=== PATIENT | male | born 1955 | race Two or more races ===

== ENCOUNTER → 2020-11-01 13:43 | Outpatient (BNVA) | payer OTHER, SELFPAY | PROVIDERS: PCP Internal Medicine; Visit Provider Nurse Practitioner Family | DX: M96.1 Postlaminectomy syndrome, not elsewhere classified (principal); M54.16 Radiculopathy, lumbar region | CPT/HCPCS: 99202 ==

== ENCOUNTER 2021-04-03 12:00 | Day surgery (SDC) | payer OTHER, SELFPAY ==
[2021-03-25 14:36] VITALS: BMI 30.1
--- NOTE | 2021-04-02 10:34 | HO.ANESPROP2 ---
Documented by User: Radha Leo NP 04/02/21 10:36 HPI - Anesthesia Eval Consult details Narrative: 65yo M for Lumbar Spinal Cord Stimulation Trial PMFSH Active Problems Active Problems: All Active Problems (Updated 03/25/21 @ 14:39 by Shayy Smalls RN) Post-laminectomy syndrome (Acute) Bilateral lumbar radiculopathy (Acute) Past Medical History Medical History Arthritis Benign prostate hyperplasia Decreased hearing Diabetes Elevated cholesterol Genital warts GERD (gastroesophageal reflux disease) History of pilonidal cyst Hyperlipidemia Lumbar back pain Surgical History Surgical History History of back surgery Hx laparoscopic cholecystectomy Social History Social History Patient Tobacco Use Status: Current everyday Tobacco user Tobacco use type: Cigarette Cigarettes Per Day: 15 Years Smoked: 30+ Smoked in Last 30 Days: Yes Use of substances other than those prescribed or required for medical reasons: Yes Substance Use Type Other:: advised to hold 3-5 days pre-op Substance Use Frequency: Occasionally Are you DNR?: No Advance Directives: No Advance Directives Information Provided: Yes (brochure mailed) Advance Directives on File: No Recently lost weight without trying: No Eating poorly because of decreased appetite: No Nutrition Risks: No Nutritional Risk Meds Allergies Allergy/AdvReac Type Severity Reaction Status Date / Time simvastatin [From Zocor] Allergy Intermediate itching/mouth Verified 03/25/21 14:44 swelling ondansetron [From Zofran] AdvReac Intermediate extreme Verified 03/25/21 14:44 redness at injection site Home Medications Medication Instructions Recorded Confirmed Last Taken Type glipizide 5 mg tablet 5 mg PO DAILY 11/01/20 03/25/21 Unknown History metformin 500 mg tablet 500 mg PO BID 11/01/20 03/25/21 Unknown History omeprazole 20 mg capsule,delayed 20 mg PO DAILY 11/01/20 03/25/21 Unknown History release Exam Exam Date and Time: April 02, 2021 1034 Height,Weight and Vital Signs: Height 5 ft 11 in Weight 97.976 kg Assessment and Plan Assessment Anesthesia Assessment: Chart Reviewed Documented by User: Ann Mcmillan MD 04/03/21 13:05 PMF Past Medical History Medical History Arthritis Benign prostate hyperplasia Decreased hearing Diabetes Elevated cholesterol Genital warts GERD (gastroesophageal reflux disease) History of pilonidal cyst Hyperlipidemia Lumbar back pain Surgical History Surgical History History of back surgery Hx laparoscopic cholecystectomy History of Problems with Anesthesia: No Social History Social History Patient Tobacco Use Status: Current everyday Tobacco user Tobacco use type: Cigarette Cigarettes Per Day: 15 Years Smoked: 30+ Smoked in Last 30 Days: Yes Use of substances other than those prescribed or required for medical reasons: Yes Substance Use Type Other:: advised to hold 3-5 days pre-op Substance Use Frequency: Occasionally Are you DNR?: No Advance Directives: No Advance Directives Information Provided: Yes (brochure mailed) Advance Directives on File: No Recently lost weight without trying: No Eating poorly because of decreased appetite: No Nutrition Risks: No Nutritional Risk Meds Allergies Allergy/AdvReac Type Severity Reaction Status Date / Time simvastatin [From Zocor] Allergy Intermediate itching/mouth Verified 03/25/21 14:44 swelling ondansetron [From Zofran] AdvReac Intermediate extreme Verified 03/25/21 14:44 redness at injection site Home Medications Medication Instructions Recorded Confirmed Last Taken Type glipizide 5 mg tablet 5 mg PO DAILY 11/01/20 03/25/21 Unknown History metformin 500 mg tablet 500 mg PO BID 11/01/20 03/25/21 Unknown History omeprazole 20 mg capsule,delayed 20 mg PO DAILY 11/01/20 03/25/21 Unknown History release Exam Airway Mallampati Class: II TM Dist: >3cm Neck ROM: Full Loose/Missing/Broken Teeth: No Heart: RRR Lungs: CTA BUT DISTANT Assessment and Plan Assessment Anesthesia Assessment: Anesthesia Plan Discussed Final Anesthetic Review History of Problems with Anesthesia: No NPO: Yes ASA Class: II Final Preanesthetic Review: Meds/Allgs Chart Reviewed, Consent Obtained/Reviewed and Anes Risks/Benef Reviewed Patient Risk: Low Procedure Risk: Intermediate Anesthetic Plan Anesthetic Plan: MAC: Disposition: Standard PACU
[2021-04-03] VITALS (8 sets, daily range): BP systolic 128–157; BP diastolic 84–91; PULSE 58–85; RESP 16–18; TEMP 36.4–36.7; O2SAT 97–99
--- NOTE | ~2021-04-03 | FL_ITS ---
EXAMINATION: XR FLUOROSCOPY WITH IMAGES CLINICAL INFORMATION: Neural stimulator implants. COMPARISON: None. TECHNIQUE: Fluoroscopy performed by Dr. Juan Salamanca. Fluoroscopy time: 9.2 minutes DAP: 59.4 Gy-cm2 Images: 3 FINDINGS: There are 3 digital images obtained of the dorsal lower and mid dorsal spine with 2 posterior neural stimulators in posterior epidural space from the T7 through T9 vertebrae. The visualized vertebral heights and alignment are normal. There is loss of T11-T12 disc height with moderate ventral spondylosis. FL/FL guidance in OR IMPRESSION: Fluoroscopy was provided to Dr. Juan Salamanca for pain management.
[2021-04-03 12:32] LABS: Glucose, Whole Blood 131 mg/dL (60-115)
[2021-04-03] MEDS: Lactated Ringers 1,000 ML 100 ML IVCONT (12:42)
--- NOTE | 2021-04-03 12:47 | MHC.SHP ---
Pre-Procedural Eval Section A Date of Service: 04/03/21 The patient is an INPATIENT: No Changes since office visit: Yes Patient answered all questions The History & Physical has been completed within 30 days and I have reviewed it.: No Section B Chief Complaint: postlaminectomy syndrome Details of Present Illness: as above Relevant Family History (Specify if Yes): No Relevant Social History: None Present Medications: see Short Stay Collaborative assessment Medical History: No relevant PMH History of Previous Operations: Relevant previous surgery/procedure and date(s) Allergies: Allergies Allergy/AdvReac Type Severity Reaction Status Date / Time simvastatin [From Zocor] Allergy Intermediate itching/mouth Verified 03/25/21 14:44 swelling ondansetron [From Zofran] AdvReac Intermediate extreme Verified 03/25/21 14:44 redness at injection site Review of Systems Sugical H&P ROS: Negative: Constitution, Cardiovascular, Respiratory, Neurological, Psychiatric, Hem-Onc, Allergic/Immunologic, Gastrointestinal, Genitourinary, Musculoskeletal, Integumentary, Endocrine and Eyes/Ears/Nose/Throat Exam Surgical H&P Exam: Normal: HEENT, Normal: Heart, Normal: Lungs, Normal: Extremities, Normal: Abdomen, Normal: Skin and Normal: Neurological Plan Diagnosis/Plan: Unchanged I have reviewed the history and physical and performed a pertinent physical examination on my patient. No changes have occurred unless specified.
--- NOTE | 2021-04-03 14:49 | P.BOP_ITS ---
Brief Operative Note Date of Service: 04/03/21 Pre-op diagnosis: postlaminectomy syndrome Post-op diagnosis: same Procedure: trial of [employer] spinal cord stimulator Implants: none permanent Surgeon: Juan Salamanca MD Anesthesia: GETA Was an Nursing Home Physician used for this Procedure?: No Estimated blood loss (mL): 0 Pathology: none sent Condition: stable Disposition: PACU
--- NOTE | 2021-04-03 14:59 | P.OP_ITS ---
Operative Note Operative Note Date of Service: 04/03/21 Narrative: Luis Enrique is 65 years old gentleman who came today into the operating room for trial of spinal cord stimulator for the treatment of post laminectomy syndrome. Preoperatively patient received cefazolin 2 g approximately 10 minutes before the procedure. After obtaining informed consent the patient was brought to the operating room, HE was positioned prone on operating table, [employer] monitors were applied and the patient was deeply sedated.? ?Time-out was performed delineating correct site, side, the nature of the procedure, patient's allergy, preoperative antibiotic if needed.? All operating room staff was participating in OR time-out procedure. Patient's entire back was prepped with DuraPrep twice and draped with full body fenestrated laparoscopy drape.? Sterilely draped C-arm was brought over operating field and square picture of the ? T12-L1 L2 and L3 vertebrae as were demonstrated on the screen.? ?Attention FIRST? was concentrated on the L1-L2 epidural interspace.? The locat ion of the projection of the right pedicle center of the L3 vertebra was found on the skin using C-arm.? This location was injected with mixture of lidocaine 2% and Marcaine 0.5% 5 cc.? After that 11 blade was used to make a tanner on the skin.? 10 cm 14 gauge? introducer epidural needle was inserted through the tanner and advanced to? ? L1-L2 epidural interspace.? The advancement of the needle was performed on anterior posterior and lateral views.?Loss of resistance technique were used to locate epidural space., epidural lead was inserted through the needle and it was advanced to? T8 level slightly right to the midline.? ? .? After that? the location of the projection of the LEFT pedicle center of the L3 vertebra was found on the skin using C-arm.? This location was injected with mixture of lidocaine 2% and Marcaine 0.5% 5 cc.? After that 11 blade was used to make a tanner on the skin.? 10 cm 14 gauge introducer epidural needle was inserted through the tanner and advanced to T8-T9 epidural interspace.? The advancement of the needle was performed on anterior posterior and lateral views.? Guitar wire and loss of resistance technique were used to locate epidural space.? When guitar wire was spread in the epidural fashion, epidural lead was inserted through the needle and advanced to the middle of T8 epidural interspace slightly? left to the existing electrode. Impedance was checked and was satisfactory . at this moment patient was awaken of the epidural leads were connected to the testing wires and trial stimulation was performed. Patient was reporting stimulation corresponding to his pain. The needles were withdrawn, the stylette wires were removed from the epidural leads.? The anchoring devices were dislodged on the leads and advanced to the level of the skin.? The anchoring devices were sutured with two 0-0 Tycron sutures per each anchor to the skin of the patient. The central fixation screw of each anchor was rotated until three clicks were heard. The leads were connected to testing device.? Bacitracin ointment was applied to the entrance point of bilateral needles.? Sterile dressing was applied to the patient's back.? The testing device was also glued to the patient's back.? the patient tolerated procedure well he was awaken and taken outside of the operating room to recovery room. he recovered uneventfully.
== END 2021-04-03 16:19 | disposition home or self-care (01) ==
PROVIDERS: PCP Internal Medicine; Visit Provider Anesthesiology
PROC: (CPT 63650; principal; 2021-04-03 13:50)
DX: M96.1 Postlaminectomy syndrome, not elsewhere classified (principal); M54.16 Radiculopathy, lumbar region; M54.50 Low back pain, unspecified; M53.80 Other specified dorsopathies, site unspecified; R20.0 Anesthesia of skin; R26.2 Difficulty in walking, not elsewhere classified; Z98.890 Other specified postprocedural states; M16.0 Bilateral primary osteoarthritis of hip; N40.0 Benign prostatic hyperplasia without lower urinary tract symptoms; E78.5 Hyperlipidemia, unspecified; E11.9 Type 2 diabetes mellitus without complications; Z79.84 Long term (current) use of oral hypoglycemic drugs; Z79.899 Other long term (current) drug therapy; Z88.8 Allergy status to other drugs, medicaments and biological substances; F17.210 Nicotine dependence, cigarettes, uncomplicated
CPT/HCPCS: 63650 ×2; 82947; C1713; C1778; J0690; J1100; J2250; J2405; J3010

== ENCOUNTER → 2021-04-09 13:04 | Outpatient (BNVA) | payer OTHER, SELFPAY | PROVIDERS: PCP Internal Medicine; Visit Provider Anesthesiology | DX: M96.1 Postlaminectomy syndrome, not elsewhere classified (principal); M54.16 Radiculopathy, lumbar region | CPT/HCPCS: 99212 ==

== ENCOUNTER 2021-08-01 06:04 | Day surgery (SDC) | payer OTHER, SELFPAY ==
--- NOTE | 2021-07-31 10:29 | HO.ANESPROP2 ---
Documented by User: Radha Leo NP 07/31/21 10:30 HPI - Anesthesia Eval Consult details Narrative: 66yo M for Lumbar Spinal Stimulation Implant s/p trial 03/2021 with [employer] PMFSH Active Problems Active Problems: All Active Problems (Updated 03/25/21 @ 14:39 by Shayy Smalls RN) Post-laminectomy syndrome (Acute) Bilateral lumbar radiculopathy (Acute) Past Medical History Medical History Arthritis Benign prostate hyperplasia Decreased hearing Diabetes Elevated cholesterol Genital warts GERD (gastroesophageal reflux disease) History of pilonidal cyst Hyperlipidemia Lumbar back pain Surgical History Surgical History History of back surgery Hx laparoscopic cholecystectomy History of Problems with Anesthesia: No Social History Social History Patient Tobacco Use Status: Current everyday Tobacco user Tobacco use type: Cigarette Cigarettes Per Day: 15 Years Smoked: 30+ Use of substances other than those prescribed or required for medical reasons: Yes Are you DNR?: No Advance Directives: No Advance Directives Information Provided: Yes Advance Directives on File: No Meds Allergies Allergy/AdvReac Type Severity Reaction Status Date / Time simvastatin [From Zocor] Allergy Intermediate itching/mouth Verified 04/09/21 13:40 swelling ondansetron [From Zofran] AdvReac Intermediate extreme Verified 04/09/21 13:40 redness at injection site Home Medications Medication Instructions Recorded Confirmed Last Taken Type glipizide 5 mg tablet 5 mg PO DAILY 11/01/20 07/24/21 Unknown History metformin 500 mg tablet 500 mg PO BID 11/01/20 07/24/21 Unknown History omeprazole 20 mg capsule,delayed 20 mg PO DAILY 11/01/20 07/24/21 Unknown History release Exam Exam Date and Time: July 31, 2021 1029 Assessment and Plan Assessment Anesthesia Assessment: Chart Reviewed Final Anesthetic Review History of Problems with Anesthesia: No Documented by User: Steven Diana MD 08/01/21 07:30 PMFSH Past Medical History Medical History Arthritis Benign prostate hyperplasia Decreased hearing Diabetes Elevated cholesterol Genital warts GERD (gastroesophageal reflux disease) History of pilonidal cyst Hyperlipidemia Lumbar back pain Family History Family history of problems with anesthesia: No Surgical History Surgical History History of back surgery Hx laparoscopic cholecystectomy Social History Social History Patient Tobacco Use Status: Current everyday Tobacco user Tobacco use type: Cigarette Cigarettes Per Day: 15 Years Smoked: 30+ Use of substances other than those prescribed or required for medical reasons: Yes Are you DNR?: No Advance Directives: No Advance Directives Information Provided: Yes Advance Directives on File: No Meds Allergies Allergy/AdvReac Type Severity Reaction Status Date / Time simvastatin [From Zocor] Allergy Intermediate itching/mouth Verified 04/09/21 13:40 swelling ondansetron [From Zofran] AdvReac Intermediate extreme Verified 04/09/21 13:40 redness at injection site Home Medications Medication Instructions Recorded Confirmed Last Taken Type glipizide 5 mg tablet 5 mg PO DAILY 11/01/20 07/24/21 Unknown History metformin 500 mg tablet 500 mg PO BID 11/01/20 07/24/21 Unknown History omeprazole 20 mg capsule,delayed 20 mg PO DAILY 11/01/20 07/24/21 Unknown History release Exam Airway Mallampati Class: III TM Dist: >3cm Neck ROM: Full Assessment and Plan Assessment Anesthesia Assessment: Anesthesia Plan Discussed and Smoking Cess. Discussed Final Anesthetic Review Family History of Problems with Anesthesia: No NPO: Yes ASA Class: II Final Preanesthetic Review: No Changes in Pt Med Stat, Meds/Allgs Chart Reviewed, Consent Obtained/Reviewed and Anes Risks/Benef Reviewed Patient Risk: Low Procedure Risk: Low Anesthetic Plan Anesthetic Plan: MAC: Disposition: Standard PACU
--- NOTE | 2021-07-31 18:05 | MHC.SHP ---
Pre-Procedural Eval Section A Date of Service: 07/31/21 The patient is an INPATIENT: No Changes since office visit: Yes Patient answered all questions The History & Physical has been completed within 30 days and I have reviewed it.: No Section B Chief Complaint: postlaminectomy syndrome Details of Present Illness: as above Relevant Family History (Specify if Yes): No Relevant Social History: None Present Medications: see Short Stay Collaborative assessment Medical History: No relevant PMH History of Previous Operations: Relevant previous surgery/procedure and date(s) Allergies: Allergies Allergy/AdvReac Type Severity Reaction Status Date / Time simvastatin [From Zocor] Allergy Intermediate itching/mouth Verified 04/09/21 13:40 swelling ondansetron [From Zofran] AdvReac Intermediate extreme Verified 04/09/21 13:40 redness at injection site Review of Systems Sugical H&P ROS: Negative: Constitution, Cardiovascular, Respiratory, Neurological, Psychiatric, Hem-Onc, Allergic/Immunologic, Gastrointestinal, Genitourinary, Musculoskeletal, Integumentary, Endocrine and Eyes/Ears/Nose/Throat Exam Surgical H&P Exam: Normal: HEENT, Normal: Heart, Normal: Lungs, Normal: Extremities, Normal: Abdomen, Normal: Skin and Normal: Neurological Plan Diagnosis/Plan: Unchanged I have reviewed the history and physical and performed a pertinent physical examination on my patient. No changes have occurred unless specified.
[2021-08-01] VITALS (11 sets, daily range): BP systolic 87–127; BP diastolic 60–82; PULSE 51–82; RESP 16–22; TEMP 36.2–36.6; O2SAT 93–98; BMI 29.2
--- NOTE | ~2021-08-01 | FL_ITS ---
EXAMINATION: XR FLUOROSCOPY WITH IMAGES CLINICAL INFORMATION: Lumbar stimulator implant COMPARISON: Fluoroscopic spot views 04/03/2021 TECHNIQUE: Fluoroscopy performed by Dr. Juan Salamanca. Fluoroscopy time: 5.8 minutes DAP: 20.6 mGycm2 Images: 3 FINDINGS: There are 2 spinal stimulator electrodes seen ascending the posterior spinal canal. The electrode tips are at level of mid thoracic spine. There is no visible kinking or defect of the leads. FL/FL guidance in OR IMPRESSION: Fluoroscopy for pain management procedure.
[2021-08-01] MEDS: Lactated Ringers 1,000 ML 100 ML IVCONT (06:49)
[2021-08-01 06:52] LABS: Glucose, Whole Blood 146 mg/dL (60-115)
--- NOTE | 2021-08-01 10:28 | PM.OP ---
Brief Operative Note Date of Service: 08/01/21 Pre-op diagnosis: Postlaminectomy syndrome Procedure: implantation of spinal cord stimulator [employer]. Implants: [employer] alpha battery and octoid epidural leads 2. Surgeon: Juan Salamanca MD Anesthesia: MAC Was an Saw Offbearer used for this Procedure?: No Estimated blood loss (mL): 10 Pathology: none sent Condition: stable Disposition: PACU
--- NOTE | 2021-08-01 10:32 | P.OP_ITS ---
Operative Note Operative Note Date of Service: 08/01/21 Narrative: Mr. Lemus is very pleasant?66 years old Gentleman who came today into the operating room for trial of spinal cord stimulator for the treatment of cervical post laminectomy syndrome. Preoperatively patient received 2 g cephasolin approximately 20 minutes before procedure. After obtaining informed consent patient was brought to the operating room, HE was positioned prone on operating table, [place] [employer] monitors were applied and patient was deeply sedated.? ?Time-out was performed delineating correct site, side, the nature of the procedure, patient's allergy, preoperative antibiotic if needed.? All operating room staff was participating in OR time-out procedure. Patient's entire back was prepped with ChloraPrep twice and draped with full body fenestrated drape and ioban film.? Sterilely draped C-arm was brought over operating field and sqare picture of T12-L1 and [id number] as were demonstrated on the screen.?The skin was infiltrated with the mixture of lidocain 2% and bupivacain 0.5% in the projection of m L2 and L3 spinouse procesess. number 10 Blade scalpel was used to perform strict midline 6.5 cm? long incision. Thorough hemostasis was obtained,? After that attention? was concentrated on the L1-L2 epidural interspace.? The location of the projection of the right pedicle center of the L3 vertebra was found on the skin using C- arm.? This location was injected with mixture of lidocaine 2% and Marcaine 0.5% 5 cc.? ? 10 cm 14 gauge? introducer epidural needle was inserted through the prevertebral fascia and advanced to [id number] interspace.? The advancement of the needle was performed on anterior posterior and lateral views.? Guitar wire and loss of resistance technique were used to locate epidural space.? When guitar wire was spread in the epidural fashion, epidural lead was inserted through the skin and it was advanced to the posterior epidural space.The lead was advanced slightly right from the midline? approximately to the mid of T8 vertebra in the posterior epidural space. ? After that location of the projection of the LEFT pedicle center of the L3 vertebra was found using C-arm.? This location was injected with mixture of lido lenny 2% and Marcaine 0.5% 5 cc.?10 cm 14 gauge? introducer epidural needle was inserted through the fascia and advanced to [id number] interspace.? The advancement of the needle was performed on anterior posterior and lateral views.? Guitar wire and loss of resistance technique were used to locate epidural space.? When guitar wire was spread in the epidural fashion, epidural lead was inserted through the needle. However the advancement of the lead from this site was very difficult. On the left side L1-L2 interspace the lead was bumping away to the anterior epidural space. The decision was made to use longer needle and attempt to reach T12 L1 epidural interspace. The projection of the L3 pedicle center of the left was found again using C-arm 15 cm 14 gauge needle was used to insert through the prevertebral fascia and advanced toward T12-L1 epidural interspace. The advancement was made on the posterior anterior and lateral views. Loss of resistance to air technique and guitar wire were used to locate epidural space. After that the? epidural lead was advanced? slightly left to the midline approximately to the midbody? of T8 vertebra in the posterior epidural space.? At this moment patient was awaken and the epidural leads were connected to the testing device.? The patient reported stimulation corresponding to his pain.? After satisfactory position of the leads were established the needles were withdrawn, the stylette wires were removed from the epidural leads.? The anchoring devices were dislodged on the leads and advanced to the level of the prevertebral fascia.?After that the anchoring devices were sutured to the prevertebral fascia using Tycron 1-0 sutures - 2 sutures per each anchoroing device? and after that the fixating screws were turned until three clicks were heard. The wound was irrigated with vancomycin containing saline and packed with the 4x4 soaked with the same saline solution. After that attention was concentrated on the right loin of the patient? were the decision was made to implant the battery.? 2 cm below the 12 right read horizontal incision was made 6.5 cm long using 10 blade scalpel, hemostasis was performed using electric cautery..? Using sharp and dull dissection pocket for the battery was formed in caudad direction from the incision.? After that the? wound pocket was? irrigated with vancomycin containing normal saline and tunneling device was used to connect midline incision and flank incision.? The epidural leads were dislodged from midline incision to the flank incision through the tunneling device.? After that they were connected to the alpha battery? and impedance was checked? anf found to be satisfactory with all leads connected.? Anchoring? screws were fix on the back of the battery.? Tycron of 1- 0 sutures were applied to the superior lateral and superior medial corners of the upper portion of the pocket? wound and after that the anchoring sutures were connected to the orifices on the battery.? Electrodes were gathered behind the body of the battery and battery was dislodged into under subcutaneous pocket.? The sutures were tied and? irrigation was repeated.? After that?0-0 Polysorb sutures were used to close the? both wounds and the 0-2 polisorb sutures were used to apptoximate the level of the skin , Blane were applied to the skin and bacitracin ointment was applied to the staple lines. The sterile dressing comprised of several 4x4 for each wound was affixed to the skin using Tegaderm film. The patient was transfered supine on the stretcher,? awaken, and transferred stable to the PACU.
== END 2021-08-01 13:17 | disposition home or self-care (01) ==
PROVIDERS: PCP Internal Medicine; Visit Provider Anesthesiology
PROC: (CPT 63685; principal; 2021-08-01 07:30)
DX: M96.1 Postlaminectomy syndrome, not elsewhere classified (principal); M54.16 Radiculopathy, lumbar region; M54.50 Low back pain, unspecified; M79.605 Pain in left leg; M79.604 Pain in right leg; M19.90 Unspecified osteoarthritis, unspecified site; E11.9 Type 2 diabetes mellitus without complications; E78.00 Pure hypercholesterolemia, unspecified; Z79.84 Long term (current) use of oral hypoglycemic drugs; Z88.8 Allergy status to other drugs, medicaments and biological substances; F17.210 Nicotine dependence, cigarettes, uncomplicated; Z98.890 Other specified postprocedural states; Z87.828 Personal history of other (healed) physical injury and trauma
CPT/HCPCS: 63685; 63650 ×2; 82947; C1713; C1778; C1787; C1820; J0690; J2250; J2795; J3010; J3370

== ENCOUNTER → 2021-08-07 08:35 | Outpatient (BNVA) | payer OTHER, SELFPAY | PROVIDERS: PCP Internal Medicine; Visit Provider Anesthesiology | DX: M96.1 Postlaminectomy syndrome, not elsewhere classified (principal); M54.16 Radiculopathy, lumbar region; G62.9 Polyneuropathy, unspecified | CPT/HCPCS: 99212 ==

== ENCOUNTER → 2021-08-14 08:24 | Outpatient (BNVA) | payer OTHER, SELFPAY | PROVIDERS: PCP Internal Medicine; Visit Provider Anesthesiology | DX: G62.9 Polyneuropathy, unspecified (principal); M96.1 Postlaminectomy syndrome, not elsewhere classified; M54.16 Radiculopathy, lumbar region | CPT/HCPCS: 99212 ==

== ENCOUNTER → 2021-09-17 10:51 | Outpatient (BNVA) | payer OTHER, SELFPAY | PROVIDERS: PCP Internal Medicine; Visit Provider Anesthesiology | DX: G62.9 Polyneuropathy, unspecified (principal); M96.1 Postlaminectomy syndrome, not elsewhere classified; M54.16 Radiculopathy, lumbar region; M25.552 Pain in left hip; M25.551 Pain in right hip | CPT/HCPCS: 99212 ==

== ENCOUNTER → 2022-02-18 15:01 | Outpatient (BNVA) | payer OTHER, SELFPAY | PROVIDERS: PCP Internal Medicine; Visit Provider Anesthesiology | DX: G62.9 Polyneuropathy, unspecified (principal); M96.1 Postlaminectomy syndrome, not elsewhere classified; M54.16 Radiculopathy, lumbar region | CPT/HCPCS: 99212 ==

== ENCOUNTER → 2022-04-20 14:19 | Outpatient (BNVA) | payer OTHER, SELFPAY | PROVIDERS: PCP Internal Medicine; Visit Provider Anesthesiology | DX: M96.1 Postlaminectomy syndrome, not elsewhere classified (principal); M54.16 Radiculopathy, lumbar region; G62.9 Polyneuropathy, unspecified | CPT/HCPCS: 99212 ==

== ENCOUNTER → 2022-07-01 14:28 | Outpatient (BNVA) | payer OTHER, SELFPAY | PROVIDERS: PCP Internal Medicine; Visit Provider Anesthesiology | DX: M47.812 Spondylosis without myelopathy or radiculopathy, cervical region (principal); M50.30 Other cervical disc degeneration, unspecified cervical region; G62.9 Polyneuropathy, unspecified; Z96.82 Presence of neurostimulator | CPT/HCPCS: 99212 ==

== ENCOUNTER 2022-09-03 14:43 | Outpatient (REF) | payer OTHER, SELFPAY ==
--- NOTE | ~2022-09-03 | MR_ITS ---
EXAMINATION: MR CERVICAL SPINE WITHOUT CONTRAST CLINICAL INFORMATION: Cervical spondylosis. COMPARISON: None available. TECHNIQUE: MRI of the cervical spine was obtained using routine sequences without contrast. FINDINGS: Mild degenerative stepwise anterolisthesis of C7-T3. Moderate degenerative disc disease throughout the cervical spine. Associated mild mixed Modic type discogenic endplate changes. No additional suspicious marrow edema. The vertebral body heights are well-maintained. No demonstrated spinal cord signal abnormalities. Limited evaluation of the soft tissues of the neck without demonstrated abnormalities. The flow voids of the major cervical vessels are maintained. Normal appearance of the cervicomedullary junction and visualized posterior fossa. SPINAL LEVELS: C2-C3: Mild disc-osteophyte complex. There is mild bilateral uncovertebral joint arthropathy. There is moderate right and mild left facet joint arthropathy. There is no neural foraminal stenosis. There is no spinal canal stenosis. C3-C4: Moderate disc-osteophyte complex. There is moderate right and mild left uncovertebral joint arthropathy. There is moderate left and mild right facet joint arthropathy. There is moderate right and mild left neural foraminal stenosis. There is no spinal canal stenosis. C4-C5: Mild disc-osteophyte complex. There is moderate mild left uncovertebral joint arthropathy. There is moderate right worse than left facet joint arthropathy. There is moderate right and mild left neural foraminal stenosis. There is no spinal canal stenosis. C5-C6: Moderate disc-osteophyte complex. There is moderate bilateral uncovertebral joint arthropathy. There is moderate to severe bilateral facet joint arthropathy. There is severe left and moderate right neural foraminal stenosis. There is no spinal canal stenosis. C6-C7: Moderate disc-osteophyte complex. There is moderate bilateral uncovertebral joint arthropathy. There is moderate bilateral facet joint arthropathy. There is moderate to severe left and moderate right neural foraminal stenosis. There is mild spinal canal stenosis. C7-T1: Mild disc-osteophyte complex. There is no uncovertebral joint arthropathy. There is moderate bilateral facet joint arthropathy. There is no neural foraminal stenosis. There is no spinal canal stenosis. MR/MR cervical spine wo con IMPRESSION: Moderate multilevel degenerative spondyloarthropathy of the cervical spine as described in detail above. Most notably, there is mild spinal canal stenosis at C6-C7. Moderate to severe neural foraminal stenoses from C3-C7.
== END 2022-09-03 14:44 | disposition home or self-care (01) ==
LOC: HO.MRI 14:43
PROVIDERS: PCP Internal Medicine; Visit Provider Anesthesiology
DX: M47.812 Spondylosis without myelopathy or radiculopathy, cervical region (principal); M50.30 Other cervical disc degeneration, unspecified cervical region
CPT/HCPCS: 72141

== ENCOUNTER 2022-09-23 14:26 | Outpatient (AMB) | payer OTHER, SELFPAY ==
--- NOTE | 2022-09-23 15:04 | MHC.OFFVIS ---
Intake Vital Signs 09/23/22 15:13 Height 5 ft 11 in Weight 215 lb BMI 30.0 BP 150/84 H Blood Pressure Location Lt brachial Position Sitting Respiration 16 Pulse 88 Pulse Source Pulse Oximeter Pulse Oximetry (%) 97 Oxygen Delivery Method Room Air Intake Visit Reasons: Cervical Spine MRI Results Allergies simvastatin [From Zocor] Allergy (Intermediate, Verified 09/23/22 15:14) itching/mouth swelling ondansetron [From Zofran] Adverse Reaction (Intermediate, Verified 09/23/22 15:14) extreme redness at injection site HPI HPI Comments History of Present Illness Details Mr. Lemus is back in my office today for evaluation in the follow-up. Reports less discomfort in the projection of the incision in his lumbar spine. Therefore no revision is needed. On the background of better pain relief from [employer] spinal cord stimulator in the lumbar spine he reports increased discomfort in the cervical spine. He reports that cervical spine prevents him from having good night's sleep. He denies pain radiation into bilateral upper extremities but reports relative weakness of bilateral hands. He reports that in the past about 20 years ago he was examined with MRI of the cervical spine and he was offered surgery on his cervical spine. At that time he declined to go for the surgery. He requested me to send him for MRI of the cervical spine. Mostly complains on pain in the projection of the battery site as well as cervicalgia neck pain. He was sent for MRI and the results of the MRI are as below. He has significant spondylosis of this cervical spine as well as several levels of the foraminal stenosis. He reports numbness and awkwardness of bilateral upper extremities. However when I offered him to consider neurosurgical consult he adamantly refused. Then I offered him to have an attempt of therapeutic C4-C5 C6 medial branch block bilateral on the cervical spine. He agreed to go for the procedure. He also complains on axis ability of care: He is unable to purchase lidocaine patches OTC and requests me to prescribe lidocaine patches to the pharmacy. However the lidocaine patch prescriptions will be covered by his insurance only if diagnosis of neuropathy will be made. New MRI results demonstrating several levels of foraminal stenosis as well as physical exam demonstrating numbness in bilateral upper extremities justify the diagnosis of neuropathy. I will prescribe him lidocaine patch with this diagnosis. He has excellent results of the spinal cord stimulator he reports up to 80% of the improvement with better mobility better activities of daily living and excellent social interactions.? He reports better night's sleep. on the background of better pain relief from [employer] spinal cord stimulator in the lumbar spine he reports increased discomfort in the cervical spine. He reports that cervical spine prevents him from having good night's sleep. He denies pain radiation into bilateral upper extremities but reports relative weakness of bilateral hands. He reports that in the past about 20 years ago he was examined with MRI of the cervical spine and he was offered surgery on his cervical spine. At that time he declined to go for the surgery. He would like to explore those options today again. He requests me to send him for MRI of the cervical spine. Prior: Status post implant of spinal cord stimulator [employer].? He reports? 65-70 % pain improvement.? He reports good mobility and activities of daily living improvement on the device.? He reports better night sleep.? She reports minor discomfort in the projection of the implantation of the machine.? He is wearing lidocaine patch in that area.? Of the areas of implantation or completely dry the scars are very well-healed there is no signs of inflammation no redness no swelling no pathological discharge noted.? He wears lidocaine patch in the area of the below the implantation of the device.? I recommended him instead to were Aspercreme with salicylate 12 hours on 12 hours off.? By this time I think it is safe for him to take diclofenac as well.? He needs to continue to were abdominal binder for yet another 5 weeks.? He needs to avoid heavy lifting torso twisting sharp bending for the next 5 weeks.? Next appointment is as needed. history of longstanding back pain. This was a result of an injury sustained at work. He has undergone multiple lumbar surgeries, the last being this past September with Dr. Velez. He reports some improvement in his discomfort but overall rates his pain a 7-8/10. He states his pain radiates across his low back as well as down both legs with associated numbness and tingling. He also reports intermittent weakness. He is currently ambulating with a cane and has been for over 20 years. [facility] Medical History Arthritis Benign prostate hyperplasia Decreased hearing Diabetes Elevated cholesterol Genital warts GERD (gastroesophageal reflux disease) History of pilonidal cyst Hyperlipidemia Lumbar back pain Surgical History History of back surgery Hx laparoscopic cholecystectomy Social History Patient Tobacco Use Status: Current everyday Tobacco user Tobacco use type: Cigarette Cigarettes Per Day: 15 Years Smoked: 30+ Review of Systems Const All systems reviewed & are unremarkable except as noted in HPI and below ENT Reports Normal hearing present Neuro Reports Normal hearing present and Denies Abnormal speech present Physical Exam Vital Signs: Last Vital Signs Pulse 88 09/23/22 15:13 Resp 16 09/23/22 15:13 BP 150/84 H 09/23/22 15:13 Pulse Ox 97 09/23/22 15:13 Oxygen Delivery Method Room Air 09/23/22 15:13 BMI result Body Mass Index 30.0 Const Other: moderately uncomfortable throughout examination General: cooperative, healthy appearing, no acute distress and alert Nutritional Appearance: obese Orientation/consciousness: patient oriented x3 Limitations: ambulation with cane HEENT Head: Yes normocephalic and Yes atraumatic Ears: hearing grossly normal bilaterally Eyes General: appearance normal, both eyes and all related structures Neck Neck: Yes normal visual inspection, Yes full ROM, Yes supple and Yes no JVD Resp Effort & Inspection: normal respiratory effort, able to speak in complete sentences and no audible wheezes Cardio Jugular venous distension: no JVD Palpation: other (no appreciable rhythmic abnormalities ) Peripheral pulses: radial pulses present, posterior tibial pulses present and dorsalis pedis present Back/Spine/Pelvis Other: Patient unable to walk on heels and tip toes due to pain. Can flex forward to approximately 50 degrees and extend to 5-10 degrees before experiencing lumbar pain. Demonstrates 5/5 strength of quadriceps bilaterally as well as flexion/dorsiflexion of bilateral feet against resistance. 2+ pedal pulses bilaterally. Straight leg rise with dorsiflexion negative bilaterally. 2+ DTRs symmetrical and bilaterally. On inspection of lower back today the wounds from spinal cord stimulator healed very well however extensive scarring and paper thin skin is noted in the projection of the lumbar spine incision. Cervical Spine: cervical ROM normal Thoracic/Lumbar Spine: thoracic and lumbar spine normal to inspection, No Thoracic/lumbar spine scar(s), pain with thoraco-lumbar ROM, No paraspinal muscle tenderness, thoraco-lumbar ROM limited, thoracic spinal tenderness and lumbar spinal tenderness at L4 and at L5 Sacroiliac joints: bilaterally nontender Neuro General: patient oriented x3, gait normal, moves all extremities and Normal light touch and pain sensation Cranial nerves: Yes Normal hearing present Speech: No Abnormal speech present Gait exam (Neuro): Assisted gait required Motor exam (neuro): 5/5 motor strength present throughout and no tremor noted Assessment & Plan Assessment & Plan (1) Degeneration, intervertebral disc, cervical: Code(s): M50.30 - Other cervical disc degeneration, unspecified cervical region (2) Spondylosis of cervical joint without myelopathy: Code(s): M47.812 - Spondylosis without myelopathy or radiculopathy, cervical region (3) Peripheral neuropathy: Code(s): G62.9 - Polyneuropathy, unspecified (4) Post-laminectomy syndrome: Code(s): M96.1 - Postlaminectomy syndrome, not elsewhere classified (5) Bilateral lumbar radiculopathy: Code(s): M54.16 - Radiculopathy, lumbar region Plan Good results of spinal cord stimulator [employer] implant 70-80 % pain relief. Improved mobility. Improved ADL. Complaints on discomfort on implantation sides. lidocaine the recommended to apply. He also will use lidocaine patch to help the cervicalgia, neck pain. The discomfort in the projection of the anchoring device in midline incision is less and patient does not complain any more. He does not want to go for revision surgery. His unable to afford the medications needed to treat his pains. I will prescribe him lidocaine patch treat his pain. Also to treat his cervicalgia I will schedule him for C4-C5 C6 bilateral medial branch block therapeutic to help his pain. Medications: New lidocaine 5% leave on most painful area for up to 12 hrs 3 patches topical DAILY PRN 30 ea 8RF pain, severe 30 days G62.9 - Polyneuropathy, unspecified Discontinued lidocaine-emollient cmb no.102 5 % Discontinued Reason: Doctor's Order 2 cm topically PRN; once a day 1 ea 8RF Peripheral pain 30 days G62.9 - Polyneuropathy, unspecified Coding Level of Care Code Est Pt Level 4 (56858) Diagnoses Degeneration, intervertebral disc, cervical M50.30 Spondylosis of cervical joint without myelopathy M47.812 Peripheral neuropathy G62.9 Post-laminectomy syndrome M96.1 Bilateral lumbar radiculopathy M54.16
[2022-09-23 15:13] VITALS: BP 150/84; PULSE 88; RESP 16; O2SAT 97
== END 2022-09-23 15:36 | disposition home or self-care (01) ==
PROVIDERS: PCP Internal Medicine; Visit Provider Anesthesiology
DX: M50.30 Other cervical disc degeneration, unspecified cervical region (principal); M47.812 Spondylosis without myelopathy or radiculopathy, cervical region; G62.9 Polyneuropathy, unspecified; M96.1 Postlaminectomy syndrome, not elsewhere classified; M54.16 Radiculopathy, lumbar region
CPT/HCPCS: 99214

== ENCOUNTER → 2022-09-23 14:26 | Outpatient (BNVA) | payer OTHER, SELFPAY | PROVIDERS: PCP Internal Medicine; Visit Provider Anesthesiology | DX: M50.30 Other cervical disc degeneration, unspecified cervical region (principal); M47.812 Spondylosis without myelopathy or radiculopathy, cervical region; G62.9 Polyneuropathy, unspecified; M96.1 Postlaminectomy syndrome, not elsewhere classified; M54.16 Radiculopathy, lumbar region | CPT/HCPCS: 99212 ==

== ENCOUNTER 2023-04-21 14:40 | Outpatient (AMB) | payer OTHER, SELFPAY ==
--- NOTE | 2023-04-21 14:49 | MHC.OFFVIS ---
Intake Vital Signs 04/21/23 16:09 Height 5 ft 11 in Weight 215 lb BMI 30.0 BP 140/90 H Blood Pressure Location Lt brachial Position Sitting Respiration 16 Pulse 100 Pulse Source Pulse Oximeter Pulse Oximetry (%) 98 Oxygen Delivery Method Room Air Intake Visit Reasons: Per discuss idea/confirm Allergies simvastatin [From Zocor] Allergy (Intermediate, Verified 04/21/23 16:11) itching/mouth swelling ondansetron [From Zofran] Adverse Reaction (Intermediate, Verified 04/21/23 16:11) extreme redness at injection site HPI HPI Comments History of Present Illness Details Mr. Lemus is back in my office today for evaluation in the follow-up. surgical lead Julia Carreno helped us in conversation with [employer] translation. He again reports the increase of the discomfort in the projection of the scar of the lumbar spine. He believes that when I was removing the staple taking care of him in postoperative time I pulled out 1 of his epidural leads. At the same time he reports that stimulation is appropriate and covers the most of his lower extremities pain. He also believes that there is inflammation in the area of scarring tissues. I explained to him that of course body reaction to foreign objects always produces inflammation to certain extent, the photographs he demonstrated to me of his back performed appropriately exactly do not demonstrate any inflammation in the area of the insertion of the electrodes because they do not show any redness any major swelling, it would be documented to have increased temperature if he would have infection and inflammation. I discussed this situation with his neurosurgeon Dr. Linda Moulton. My idea was to find a plastic surgeon to excise the paper thin skin covering the current anchors of the spinal cord stimulator. Dr. Velez recommended to remove current thoracic placed spinal cord stimulator and reinsert the spinal cord stimulator in the projection of the higher level of the lower thoracic upper lumbar spine avoid the scarring tissue and then t to tunnel the leads back to the battery of the patient through the more thick paraspinal tissues. I agreed with Dr. Moulton's opinion and I offered to the patient to have this procedure scheduled with Dr. Lombardo, using surgical approach in the T9 or T10 projection thoracic incision or go for this procedure with me where I will insert 2 new leads into his epidural space in the projection of approximate T11-T10 projection. He agreed to go for procedure with me. I might request an assistance of a general surgeon to help me to close the wound after removal of the old spinal cord stimulator leads and surrounding scar tissue. We also discussed possibility of treating his pain with systemic opioid medications. For this he needs to become member of our chronic opioid program. In the past requested me to send him for MRI of the cervical spine. Mostly complains on pain in the projection of the battery site as well as cervicalgia neck pain. He was sent for MRI and the results of the MRI are as below. He has significant spondylosis of this cervical spine as well as several levels of the foraminal stenosis. He reports numbness and awkwardness of bilateral upper extremities. However when I offered him to consider neurosurgical consult he adamantly refused. Then I offered him to have an attempt of therapeutic C4-C5 C6 medial branch block bilateral on the cervical spine. He never went for this procedure. He requests me to prescribe lidocaine ointment to treat his neck pain. Prior : Next He has excellent results of the spinal cord stimulator he reports up to 80% of the improvement with better mobility better activities of daily living and excellent social interactions.? He reports better night's sleep. on the background of better pain relief from [employer] spinal cord stimulator in the lumbar spine he reports increased discomfort in the cervical spine. He reports that cervical spine prevents him from having good night's sleep. He denies pain radiation into bilateral upper extremities but reports relative weakness of bilateral hands. He reports that in the past about 20 years ago he was examined with MRI of the cervical spine and he was offered surgery on his cervical spine. At that time he declined to go for the surgery. He would like to explore those options today again. He requests me to send him for MRI of the cervical spine. Prior: Status post implant of spinal cord stimulator [employer].? He reports? 65-70 % pain improvement.? He reports good mobility and activities of daily living improvement on the device.? He reports better night sleep.? She reports minor discomfort in the projection of the implantation of the machine.? He is wearing lidocaine patch in that area.? Of the areas of implantation or completely dry the scars are very well-healed there is no signs of inflammation no redness no swelling no pathological discharge noted.? He wears lidocaine patch in the area of the below the implantation of the device.? I recommended him instead to were [employer] with salicylate 12 hours on 12 hours off.? By this time I think it is safe for him to take diclofenac as well.? He needs to continue to were abdominal binder for yet another 5 weeks.? He needs to avoid heavy lifting torso twisting sharp bending for the next 5 weeks.? Next appointment is as needed. history of longstanding back pain. This was a result of an injury sustained at work. He has undergone multiple lumbar surgeries, the last being this past September with Dr. Velez. He reports some improvement in his discomfort but overall rates his pain a 7-8/10. He states his pain radiates across his low back as well as down both legs with associated numbness and tingling. He also reports intermittent weakness. He is currently ambulating with a cane and has been for over 20 years. [facility] Medical History (Updated 04/21/23 @ 16:45 by Juan Salamanca MD) Spinal cord stimulator dysfunction Arthritis GERD (gastroesophageal reflux disease) Diabetes Elevated cholesterol Genital warts Benign prostate hyperplasia Hyperlipidemia History of pilonidal cyst Decreased hearing Lumbar back pain Surgical History Hx laparoscopic cholecystectomy History of back surgery Social History Patient Tobacco Use Status: Current everyday Tobacco user Tobacco use type: Cigarette Cigarettes Per Day: 15 Years Smoked: 30+ Review of Systems Const All systems reviewed & are unremarkable except as noted in HPI and below ENT Reports Normal hearing present Neuro Reports Normal hearing present and Denies Abnormal speech present Physical Exam Vital Signs: Last Vital Signs Pulse 100 04/21/23 16:09 Resp 16 04/21/23 16:09 BP 140/90 H 04/21/23 16:09 Pulse Ox 98 04/21/23 16:09 Oxygen Delivery Method Room Air 04/21/23 16:09 BMI result Body Mass Index 30.0 Const Other: moderately uncomfortable throughout examination General: cooperative, healthy appearing, no acute distress and alert Nutritional Appearance: obese Orientation/consciousness: patient oriented x3 Limitations: ambulation with cane HEENT Head: Yes normocephalic and Yes atraumatic Ears: hearing grossly normal bilaterally Eyes General: appearance normal, both eyes and all related structures Neck Neck: Yes normal visual inspection, Yes full ROM, Yes supple and Yes no JVD Resp Effort & Inspection: normal respiratory effort, able to speak in complete sentences and no audible wheezes Cardio Jugular venous distension: no JVD Palpation: other (no appreciable rhythmic abnormalities ) Peripheral pulses: radial pulses present, posterior tibial pulses present and dorsalis pedis present Back/Spine/Pelvis Other: Patient unable to walk on heels and tip toes due to pain. Can flex forward to approximately 50 degrees and extend to 5-10 degrees before experiencing lumbar pain. Demonstrates 5/5 strength of quadriceps bilaterally as well as flexion/dorsiflexion of bilateral feet against resistance. 2+ pedal pulses bilaterally. Straight leg rise with dorsiflexion negative bilaterally. 2+ DTRs symmetrical and bilaterally. On inspection of lower back today the wounds from spinal cord stimulator healed very well however extensive scarring and paper thin skin is noted in the projection of the lumbar spine incision. Cervical Spine: cervical ROM normal Thoracic/Lumbar Spine: thoracic and lumbar spine normal to inspection, No Thoracic/lumbar spine scar(s), pain with thoraco-lumbar ROM, No paraspinal muscle tenderness, thoraco-lumbar ROM limited, thoracic spinal tenderness and lumbar spinal tenderness at L4 and at L5 Sacroiliac joints: bilaterally nontender Neuro General: patient oriented x3, gait normal, moves all extremities and Normal light touch and pain sensation Cranial nerves: Yes Normal hearing present Speech: No Abnormal speech present Gait exam (Neuro): Assisted gait required Motor exam (neuro): 5/5 motor strength present throughout and no tremor noted Assessment & Plan Assessment & Plan (1) Degeneration, intervertebral disc, cervical: Code(s): M50.30 - Other cervical disc degeneration, unspecified cervical region (2) Spondylosis of cervical joint without myelopathy: Code(s): M47.812 - Spondylosis without myelopathy or radiculopathy, cervical region (3) Peripheral neuropathy: Code(s): G62.9 - Polyneuropathy, unspecified (4) Post-laminectomy syndrome: Code(s): M96.1 - Postlaminectomy syndrome, not elsewhere classified (5) Bilateral lumbar radiculopathy: Code(s): M54.16 - Radiculopathy, lumbar region (6) Spinal cord stimulator dysfunction: Code(s): T85.192A - Other mechanical complication of implanted electronic neurostimulator of spinal cord electrode (lead), initial encounter (7) Malfunction of spinal cord stimulator: Code(s): T85.192A - Other mechanical complication of implanted electronic neurostimulator of spinal cord electrode (lead), initial encounter Plan 1. We agreed that I will schedule him for revision of the spinal cord stimulator procedure described as above. In the order to prepare for this procedure I need to obtain the images of the thoracic and lumbar spine with position of the electrodes and anchoring system. 2. I will prescribe him lidocaine topical to apply to the neck to alleviate neck pain. 3. I offered patient to become a member of our chronic opioid program however patient refused. Medications: New lidocaine 5% 1 appl topical BEDTIME 30 days PRN 30 grams 8RF pain Patient Instructions: I here by testify that I spent 45 minutes today in conversation with this patient as well as another 5 minutes in evaluating prior records, evaluating prior images, organizing this note. Coding Level of Care Code Est Pt Level 5 (22959) Diagnoses Degeneration, intervertebral disc, cervical M50.30 Spondylosis of cervical joint without myelopathy M47.812 Peripheral neuropathy G62.9 Post-laminectomy syndrome M96.1 Bilateral lumbar radiculopathy M54.16 Spinal cord stimulator dysfunction T85.192A
[2023-04-21 16:09] VITALS: BP 140/90; PULSE 100; RESP 16; O2SAT 98
== END 2023-04-21 15:47 | disposition home or self-care (01) ==
PROVIDERS: PCP Internal Medicine; Visit Provider Anesthesiology
DX: M50.30 Other cervical disc degeneration, unspecified cervical region (principal); M47.812 Spondylosis without myelopathy or radiculopathy, cervical region; G62.9 Polyneuropathy, unspecified; M96.1 Postlaminectomy syndrome, not elsewhere classified; M54.16 Radiculopathy, lumbar region; T85.192A Other mechanical complication of implanted electronic neurostimulator of spinal cord electrode (lead), initial encounter
CPT/HCPCS: 99215

== ENCOUNTER → 2023-04-21 14:40 | Outpatient (BNVA) | payer OTHER, SELFPAY | PROVIDERS: PCP Internal Medicine; Visit Provider Anesthesiology | DX: M50.30 Other cervical disc degeneration, unspecified cervical region (principal); M47.812 Spondylosis without myelopathy or radiculopathy, cervical region; G62.9 Polyneuropathy, unspecified; M96.1 Postlaminectomy syndrome, not elsewhere classified; M54.16 Radiculopathy, lumbar region; T85.192A Other mechanical complication of implanted electronic neurostimulator of spinal cord electrode (lead), initial encounter | CPT/HCPCS: 99212 ==

== ENCOUNTER 2023-04-27 06:36 | Outpatient (REF) | payer OTHER, SELFPAY ==
--- NOTE | ~2023-04-27 | FL_ITS ---
EXAMINATION: XR FLUOROSCOPY WITH IMAGES CLINICAL INFORMATION: Other mechanical complication of implanted electronic neurostimulator. COMPARISON: Fluoroscopy dated 07/28/2021. TECHNIQUE: Fluoroscopy Supervised By: Dr. Tangela Jensen. Fluoroscopy Time: 0.0 minutes. Cumulative Dose: 2.09 mGy. DAP: 0.0363 Gycm2. Images: 4. FINDINGS: The submitted images show a neurostimulator device with lead tip situated at the T7-T8 level. FL/FL guidance in treatment room IMPRESSION: Intraoperative fluoroscopic guidance is provided during neurostimulator device management. Please see the patient's Operative Report for full procedural details.
== END 2023-04-27 06:37 | disposition home or self-care (01) ==
LOC: CF 06:36
PROVIDERS: Visit Provider Anesthesiology
DX: Z13.89 Encounter for screening for other disorder (principal)

== ENCOUNTER 2023-05-26 14:15 | Outpatient (AMB) | payer OTHER, SELFPAY ==
--- NOTE | 2023-05-26 14:25 | A.OFFVIS_ITS ---
Intake Vital Signs 05/26/23 14:26 Height 5 ft 11 in Weight 211 lb 4 oz BMI 29.5 BP 154/90 H Blood Pressure Location Lt brachial Position Sitting Respiration 18 Pulse 78 Pulse Source Pulse Oximeter Pulse Oximetry (%) 96 Oxygen Delivery Method Room Air Intake Visit Reasons: Medication discussion Intake Note: Patient comes in to discuss medication. Reports pain 9/10. Allergies simvastatin [From Zocor] Allergy (Intermediate, Verified 05/26/23 14:25) itching/mouth swelling ondansetron [From Zofran] Adverse Reaction (Intermediate, Verified 05/26/23 14:25) extreme redness at injection site HPI HPI Comments History of Present Illness Details Mr. Lemus is back in my office today for evaluation in the follow- up. motor vehicle parts interpreter Kamilah [id number] from [employer] was helping us to have the conversation today. Unfortunately patient is still waiting for approval of his procedure by workman's comp. All the documents are submitted. However this office did not hear anything from WC. I suggested to the patient that I recommend him to call his deputy prosecuting attorney to deal with WC. To help his pain I will start him on gabapentin 300 mg t.i.d.. I will elevated doses once we will find out if there is no side effects from this medication. He continues to reports the increase of the discomfort in the projection of the scar of the lumbar spine. He believes that when I was removing the staple taking care of him in postoperative time I pulled out 1 of his epidural leads. At the same time he reports that stimulation is appropriate and covers the most of his lower extremities pain. He also believes that there is inflammation in the area of scarring tissues. I explained to him that of course body reaction to foreign objects always produces inflammation to certain extent, the photographs he demonstrated to me of his back performed appropriately exactly do not demonstrate any inflammation in the area of the insertion of the electrodes because they do not show any redness any major swelling, it would be documented to have increased temperature if he would have infection and inflammation. I discussed this situation with his neurosurgeon Dr. Linda Moulton. My idea was to find a plastic surgeon to excise the paper thin skin covering the current anchors of the spinal cord stimulator. Dr. Velez recommended to remove current thoracic placed spinal cord stimulator and reinsert the spinal cord stimulator in the projection of the higher level of the lower thoracic upper lumbar spine avoid the scarring tissue and then t to tunnel the leads back to the battery of the patient through the more thick paraspinal tissues. I agreed with Dr. Moulton's opinion and I offered to the patient to have this procedure scheduled with Dr. Lombardo, using surgical approach in the T9 or T10 projection thoracic incision or go for this procedure with me where I will insert 2 new leads into his epidural space in the projection of approximate T11-T10 projection. He agreed to go for procedure with me. I might request an assistance of a general surgeon to help me to close the wound after removal of the old spinal cord stimulator leads and surrounding scar tissue. We also discussed possibility of treating his pain with systemic opioid medications. For this he needs to become member of our chronic opioid program. In the past requested me to send him for MRI of the cervical spine. Mostly complains on pain in the projection of the battery site as well as cervicalgia neck pain. He was sent for MRI and the results of the MRI are as below. He has significant spondylosis of this cervical spine as well as several levels of the foraminal stenosis. He reports numbness and awkwardness of bilateral upper extremities. However when I offered him to consider neurosurgical consult he adamantly refused. Then I offered him to have an attempt of therapeutic C4-C5 C6 medial branch block bilateral on the cervical spine. He never went for this procedure. He requests me to prescribe lidocaine ointment to treat his neck pain. Prior : Next He has excellent results of the spinal cord stimulator he reports up to 80% of the improvement with better mobility better activities of daily living and excellent social interactions.? He reports better night's sleep. on the background of better pain relief from [employer] spinal cord stimulator in the lumbar spine he reports increased discomfort in the cervical spine. He reports that cervical spine prevents him from having good night's sleep. He denies pain radiation into bilateral upper extremities but reports relative weakness of bilateral hands. He reports that in the past about 20 years ago he was examined with MRI of the cervical spine and he was offered surgery on his cervical spine. At that time he declined to go for the surgery. He would like to explore those options today again. He requests me to send him for MRI of the cervical spine. Prior: Status post implant of spinal cord stimulator [employer].? He reports? 65-70 % pain improvement.? He reports good mobility and activities of daily living improvement on the device.? He reports better night sleep.? She reports minor discomfort in the projection of the implantation of the machine.? He is wearing lidocaine patch in that area.? Of the areas of implantation or completely dry the scars are very well-healed there is no signs of inflammation no redness no swelling no pathological discharge noted.? He wears lidocaine patch in the area of the below the implantation of the device.? I recommended him instead to were Aspercreme with salicylate 12 hours on 12 hours off.? By this time I think it is safe for him to take diclofenac as well.? He needs to continue to were abdominal binder for yet another 5 weeks.? He needs to avoid heavy lifting torso twisting sharp bending for the next 5 weeks.? Next appointment is as needed. history of longstanding back pain. This was a result of an injury sustained at work. He has undergone multiple lumbar surgeries, the last being this past September with Dr. Velez. He reports some improvement in his discomfort but overall rates his pain a 7-8/10. He states his pain radiates across his low back as well as down both legs with associated numbness and tingling. He also reports intermittent weakness. He is currently ambulating with a cane and has been for over 20 years. [facility] Medical History (Updated 04/21/23 @ 16:45 by Juan Salamanca MD) Spinal cord stimulator dysfunction Arthritis GERD (gastroesophageal reflux disease) Diabetes Elevated cholesterol Genital warts Benign prostate hyperplasia Hyperlipidemia History of pilonidal cyst Decreased hearing Lumbar back pain Surgical History Hx laparoscopic cholecystectomy History of back surgery Social History Patient Tobacco Use Status: Current everyday Tobacco user Tobacco use type: Cigarette Cigarettes Per Day: 15 Years Smoked: 30+ Review of Systems Const All systems reviewed & are unremarkable except as noted in HPI and below ENT Reports Normal hearing present Neuro Reports Normal hearing present and Denies Abnormal speech present Physical Exam Vital Signs: Last Vital Signs Pulse 78 05/26/23 14:26 Resp 18 05/26/23 14:26 BP 154/90 H 05/26/23 14:26 Pulse Ox 96 05/26/23 14:26 Oxygen Delivery Method Room Air 05/26/23 14:26 BMI result Body Mass Index 29.5 Const Other: moderately uncomfortable throughout examination General: cooperative, healthy appearing, no acute distress and alert Nutritional Appearance: obese Orientation/consciousness: patient oriented x3 Limitations: ambulation with cane HEENT Head: Yes normocephalic and Yes atraumatic Ears: hearing grossly normal bilaterally Eyes General: appearance normal, both eyes and all related structures Neck Neck: Yes normal visual inspection, Yes full ROM, Yes supple and Yes no JVD Resp Effort & Inspection: normal respiratory effort, able to speak in complete sentences and no audible wheezes Cardio Jugular venous distension: no JVD Palpation: other (no appreciable rhythmic abnormalities ) Peripheral pulses: radial pulses present, posterior tibial pulses present and dorsalis pedis present Back/Spine/Pelvis Other: Patient unable to walk on heels and tip toes due to pain. Can flex forward to approximately 50 degrees and extend to 5-10 degrees before experiencing lumbar pain. Demonstrates 5/5 strength of quadriceps bilaterally as well as flexion/dorsiflexion of bilateral feet against resistance. 2+ pedal pulses bilaterally. Straight leg rise with dorsiflexion negative bilaterally. 2+ DTRs symmetrical and bilaterally. On inspection of lower back today the wounds from spinal cord stimulator healed very well however extensive scarring and paper th in skin is noted in the projection of the lumbar spine incision. Cervical Spine: cervical ROM normal Thoracic/Lumbar Spine: thoracic and lumbar spine normal to inspection, No Thoracic/lumbar spine scar(s), pain with thoraco-lumbar ROM, No paraspinal muscle tenderness, thoraco-lumbar ROM limited, thoracic spinal tenderness and lumbar spinal tenderness at L4 and at L5 Sacroiliac joints: bilaterally nontender Neuro General: patient oriented x3, gait normal, moves all extremities and Normal light touch and pain sensation Cranial nerves: Yes Normal hearing present Speech: No Abnormal speech present Gait exam (Neuro): Assisted gait required Motor exam (neuro): 5/5 motor strength present throughout and no tremor noted Assessment & Plan Assessment & Plan (1) Degeneration, intervertebral disc, cervical: Code(s): M50.30 - Other cervical disc degeneration, unspecified cervical region (2) Spondylosis of cervical joint without myelopathy: Code(s): M47.812 - Spondylosis without myelopathy or radiculopathy, cervical region (3) Peripheral neuropathy: Code(s): G62.9 - Polyneuropathy, unspecified (4) Post-laminectomy syndrome: Code(s): M96.1 - Postlaminectomy syndrome, not elsewhere classified (5) Bilateral lumbar radiculopathy: Code(s): M54.16 - Radiculopathy, lumbar region (6) Spinal cord stimulator dysfunction: Code(s): T85.192A - Other mechanical complication of implanted electronic neurostimulator of spinal cord electrode (lead), initial encounter (7) Malfunction of spinal cord stimulator: Code(s): T85.192A - Other mechanical complication of implanted electronic neurostimulator of spinal cord electrode (lead), initial encounter Plan Revision is still pending with his insurance company this is [employer] from [place]. All information was admitted to the company and several telephone calls were given to the company however we did not hear anything from the insurance company. I recommended the patient to involve his deputy prosecuting attorney to expedite the procedure. As of his current pain level he still is negative about opioid medications, he is afraid of addiction. He would like to try gabapentin after I explained to him risks and benefits of the gabapentin most significantly risk of depression and risk of swelling of bilateral lower extremities. Patient understood the risks and agreed to pick pack worker the gabapentin, insisting to send it to his special pharmacy. See as below. Medications: New gabapentin 300 mg PO TID 90 caps 8RF 30 days Coding Level of Care Code Est Pt Level 3 (21439) Diagnoses Degeneration, intervertebral disc, cervical M50.30 Spondylosis of cervical joint without myelopathy M47.812 Peripheral neuropathy G62.9 Post-laminectomy syndrome M96.1 Bilateral lumbar radiculopathy M54.16 Spinal cord stimulator dysfunction T85.192A
[2023-05-26 14:26] VITALS: BP 154/90; PULSE 78; RESP 18; O2SAT 96; BMI 29.5
== END 2023-05-26 15:00 | disposition home or self-care (01) ==
PROVIDERS: PCP Internal Medicine; Visit Provider Anesthesiology
DX: M50.30 Other cervical disc degeneration, unspecified cervical region (principal); M47.812 Spondylosis without myelopathy or radiculopathy, cervical region; G62.9 Polyneuropathy, unspecified; M96.1 Postlaminectomy syndrome, not elsewhere classified; M54.16 Radiculopathy, lumbar region; T85.192A Other mechanical complication of implanted electronic neurostimulator of spinal cord electrode (lead), initial encounter
CPT/HCPCS: 99213

== ENCOUNTER → 2023-05-26 14:15 | Outpatient (BNVA) | payer OTHER, SELFPAY | PROVIDERS: PCP Internal Medicine; Visit Provider Anesthesiology | DX: M50.30 Other cervical disc degeneration, unspecified cervical region (principal); M47.812 Spondylosis without myelopathy or radiculopathy, cervical region; G62.9 Polyneuropathy, unspecified; M96.1 Postlaminectomy syndrome, not elsewhere classified; M54.16 Radiculopathy, lumbar region; T85.192A Other mechanical complication of implanted electronic neurostimulator of spinal cord electrode (lead), initial encounter | CPT/HCPCS: 99212 ==

== ENCOUNTER 2023-08-02 14:24 | Outpatient (AMB) | payer OTHER, SELFPAY ==
--- NOTE | 2023-08-02 14:30 | A.OFFVIS_ITS ---
Vital Signs 08/02/23 14:56 Height 5 ft 11 in Weight 215 lb 4 oz BMI 30.0 BP 134/84 Blood Pressure Location Lt brachial Position Sitting Respiration 16 Pulse 96 Pulse Source Pulse Oximeter Pulse Oximetry (%) 98 Oxygen Delivery Method Room Air Intake Visit Reasons: Medication discussion Intake Note: Patient comes in to discuss medication options. Reports pain 8/10. Allergies simvastatin [From Zocor] Allergy (Intermediate, Verified 08/02/23 14:59) itching/mouth swelling ondansetron [From Zofran] Adverse Reaction (Intermediate, Verified 08/02/23 14:59) extreme redness at injection site HPI Comments Details: Mr. Lemus is back in my office today for evaluation in the follow-up. Julia Carreno medical office worker and official preparing box tender helped us to maintain this conversation. The patient workman's comp insurance did not approve his revision of spinal cord stimulator procedure. They also did not approve gabapentin I prescribed for the patient. I recommended patient to close his case and go on regular Medicare and Medicaid. He is disabled individual and he was paying Federal taxes for at least 10 years. Therefore he is eligible for Medicare and if his income is not very high probably for Medicaid as well. In any way if regular traditional insurance instead of [employer] will be on my way we would be already performing the revision procedure. He also requests me to prescribe cyclobenzaprine and Lyrica. I will prescribe those medications for him to help his discomfort. He continues to reports the increase of the discomfort in the projection of the scar of the lumbar spine. He believes that when I was removing the staple taking care of him in postoperative time I pulled out 1 of his epidural leads. At the same time he reports that stimulation is appropriate and covers the most of his lower extremities pain. He also believes that there is inflammation in the area of scarring tissues. I explained to him that of course body reaction to foreign objects always produces inflammation to certain extent, the photographs he demonstrated to me of his back performed appropriately exactly do not demonstrate any inflammation in the area of the insertion of the electrodes because they do not show any redness any major swelling, it would be documented to have increased temperature if he would have infection and inflammation. I discussed this situation with his neurosurgeon Dr. Linda Moulton. My idea was to find a plastic surgeon to excise the paper thin skin covering the current anchors of the spinal cord stimulator. Dr. Velez recommended to remove current thoracic placed spinal cord stimulator and reinsert the spinal cord stimulator in the projection of the higher level of the lower thoracic upper lumbar spine avoid the scarring tissue and then t to tunnel the leads back to the battery of the patient through the more thick paraspinal tissues. I agreed with Dr. Moulton's opinion and I offered to the patient to have this procedure scheduled with Dr. Lombardo, using surgical approach in the T9 or T10 projection thoracic incision or go for this procedure with me where I will insert 2 new leads into his epidural space in the projection of approximate T11-T10 projection. He agreed to go for procedure with me. I might request an assistance of a general surgeon to help me to close the wound after removal of the old spinal cord stimulator leads and surrounding scar tissue. We also discussed possibility of treating his pain with systemic opioid medications. For this he needs to become member of our chronic opioid program. In the past requested me to send him for MRI of the cervical spine. Mostly complains on pain in the projection of the battery site as well as cervicalgia neck pain. He was sent for MRI and the results of the MRI are as below. He has significant spondylosis of this cervical spine as well as several levels of the foraminal stenosis. He reports numbness and awkwardness of bilateral upper extremities. However when I offered him to consider neurosurgical consult he adamantly refused. Then I offered him to have an attempt of therapeutic C4-C5 C6 medial branch block bilateral on the cervical spine. He never went for this procedure. He requests me to prescribe lidocaine ointment to treat his neck pain. Prior : Next He has excellent results of the spinal cord stimulator he reports up to 80% of the improvement with better mobility better activities of daily living and excellent social interactions.? He reports better night's sleep. on the background of better pain relief from [employer] spinal cord stimulator in the lumbar spine he reports increased discomfort in the cervical spine. He reports that cervical spine prevents him from having good night's sleep. He denies pain radiation into bilateral upper extremities but reports relative weakness of bilateral hands. He reports that in the past about 20 years ago he was examined with MRI of the cervical spine and he was offered surgery on his cervical spine. At that time he declined to go for the surgery. He would like to explore those options today again. He requests me to send him for MRI of the cervical spine. Prior: Status post implant of spinal cord stimulator [employer].? He reports? 65-70 % pain improvement.? He reports good mobility and activities of daily living improvement on the device.? He reports better night sleep.? She reports minor discomfort in the projection of the implantation of the machine.? He is wearing lidocaine patch in that area.? Of the areas of implantation or completely dry the scars are very well-healed there is no signs of inflammation no redness no swelling no pathological discharge noted.? He wears lidocaine patch in the area of the below the implantation of the device.? I recommended him instead to were Aspercreme with salicylate 12 hours on 12 hours off.? By this time I think it is safe for him to take diclofenac as well.? He needs to continue to were abdominal binder for yet another 5 weeks.? He needs to avoid heavy lifting torso twisting sharp bending for the next 5 weeks.? Next appointment is as needed. history of longstanding back pain. This was a result of an injury sustained at work. He has undergone multiple lumbar surgeries, the last being this past September with Dr. Velez. He reports some improvement in his discomfort but overall rates his pain a 7-8/10. He states his pain radiates across his low back as well as down both legs with associated numbness and tingling. He also reports intermittent weakness. He is currently ambulating with a cane and has been for over 20 years. [facility] Medical History (Updated 04/21/23 @ 16:45 by Juan Salamanca MD) Spinal cord stimulator dysfunction Arthritis GERD (gastroesophageal reflux disease) Diabetes Elevated cholesterol Genital warts Benign prostate hyperplasia Hyperlipidemia History of pilonidal cyst Decreased hearing Lumbar back pain Surgical History Hx laparoscopic cholecystectomy History of back surgery Social History Patient Tobacco Use Status: Current everyday Tobacco user Tobacco use type: Cigarette Cigarettes Per Day: 15 Years Smoked: 30+ Review of Systems Const All systems reviewed & are unremarkable except as noted in HPI and below ENT Reports Normal hearing present Neuro Reports Normal hearing present and Denies Abnormal speech present Physical Exam Vital Signs: Last Vital Signs Pulse 96 08/02/23 14:56 Resp 16 08/02/23 14:56 BP 134/84 08/02/23 14:56 Pulse Ox 98 08/02/23 14:56 Oxygen Delivery Method Room Air 08/02/23 14:56 BMI result Body Mass Index 30.0 Const Other: moderately uncomfortable throughout examination General: cooperative, healthy appearing, no acute distress and alert Nutritional Appearance: obese Orientation/consciousness: patient oriented x3 Limitations: ambulation with cane HEENT Head: Yes normocephalic and Yes atraumatic Ears: hearing grossly normal bilaterally Eyes General: appearance normal, both eyes and all related structures Neck Neck: Yes normal visual inspection, Yes full ROM, Yes supple and Yes no JVD Resp Effort & Inspection: normal respiratory effort, able to speak in complete sentences and no audible wheezes Cardio Jugular venous distension: no JVD Palpation: other (no appreciable rhythmic abnormalities ) Peripheral pulses: radial pulses present, posterior tibial pulses present and dorsalis pedis present Back/Spine/Pelvis Other: Patient unable to walk on heels and tip toes due to pain. Can flex forward to approximately 50 degrees and extend to 5-10 degrees before experiencing lumbar pain. Demonstrates 5/5 strength of quadriceps bilaterally as well as flexion/dorsiflexion of bilateral feet against resistance. 2+ pedal pulses bilaterally. Straight leg rise with dorsiflexion negative bilaterally. 2+ DTRs symmetrical and bilaterally. On inspection of lower back today the wounds from spinal cord stimulator healed very well however extensive scarring and paper thin skin is noted in the projection of the lumbar spine incision. Cervical Spine: cervical ROM normal Thoracic/Lumbar Spine: thoracic and lumbar spine normal to inspection, No Thoracic/lumbar spine scar(s), pain with thoraco-lumbar ROM, No paraspinal muscle tenderness, thoraco-lumbar ROM limited, thoracic spinal tenderness and lumbar spinal tenderness at L4 and at L5 Sacroiliac joints: bilaterally nontender Neuro General: patient oriented x3, gait normal, moves all extremities and Normal light touch and pain sensation Cranial nerves: Yes Normal hearing present Speech: No Abnormal speech present Gait exam (Neuro): Assisted gait required Motor exam (neuro): 5/5 motor strength present throughout and no tremor noted Assessment & Plan Assessment & Plan (1) Degeneration, intervertebral disc, cervical: Code(s): M50.30 - Other cervical disc degeneration, unspecified cervical region Category: Medical (2) Spondylosis of cervical joint without myelopathy: Code(s): M47.812 - Spondylosis without myelopathy or radiculopathy, cervical region Category: Medical (3) Peripheral neuropathy: Code(s): G62.9 - Polyneuropathy, unspecified Category: Medical (4) Post-laminectomy syndrome: Code(s): M96.1 - Postlaminectomy syndrome, not elsewhere classified Category: Medical (5) Bilateral lumbar radiculopathy: Code(s): M54.16 - Radiculopathy, lumbar region Category: Medical (6) Spinal cord stimulator dysfunction: Code(s): T85.192A - Other mechanical complication of implanted electronic neurostimulator of spinal cord electrode (lead), initial encounter Category: Medical (7) Malfunction of spinal cord stimulator: Code(s): T85.192A - Other mechanical complication of implanted electronic neurostimulator of spinal cord electrode (lead), initial encounter Category: Medical Plan Revision is denied by his insurance company. I recommended patient to switch his insurance to Medicare and Medicaid and close his workman's comp case. He also requested me to prescribe him Lyrica and cyclobenzaprine, he wants to try this medications to be approved by his workmen's comp case. I told him that I do not mind to write the prescriptions however it is questionable whether or not the insurance companies will approve this prescription. They already did not approve his gabapentin. So I will stop gabapentin and I will prescribe him as below Lyrica and cyclobenzaprine. Medications: New pregabalin (Lyrica) 75 mg PO BID 30 days 60 caps 5RF Refilled cyclobenzaprine 5 mg PO TID 30 days PRN 90 tabs 3RF muscle spasm Discontinued gabapentin Discontinued Reason: Doctor's Order 300 mg PO TID 30 days 90 caps 8RF Patient Instructions: I here by testify that I spent 35 minutes in conversation with this patient as well as planning his care and sending his prescriptions and organizing this note. Coding Level of Care Code Est Pt Level 4 (02076) Diagnoses Degeneration, intervertebral disc, cervical M50.30 Spondylosis of cervical joint without myelopathy M47.812 Peripheral neuropathy G62.9 Post-laminectomy syndrome M96.1 Bilateral lumbar radiculopathy M54.16 Spinal cord stimulator dysfunction T85.192A
[2023-08-02 14:56] VITALS: BP 134/84; PULSE 96; RESP 16; O2SAT 98
== END 2023-08-02 14:58 | disposition home or self-care (01) ==
PROVIDERS: PCP Internal Medicine; Visit Provider Anesthesiology
DX: M50.30 Other cervical disc degeneration, unspecified cervical region (principal); M47.812 Spondylosis without myelopathy or radiculopathy, cervical region; G62.9 Polyneuropathy, unspecified; M96.1 Postlaminectomy syndrome, not elsewhere classified; M54.16 Radiculopathy, lumbar region; T85.192A Other mechanical complication of implanted electronic neurostimulator of spinal cord electrode (lead), initial encounter
CPT/HCPCS: 99214

== ENCOUNTER → 2023-08-02 14:24 | Outpatient (BNVA) | payer OTHER, SELFPAY | PROVIDERS: PCP Internal Medicine; Visit Provider Anesthesiology | DX: M50.30 Other cervical disc degeneration, unspecified cervical region (principal); M47.812 Spondylosis without myelopathy or radiculopathy, cervical region; G62.9 Polyneuropathy, unspecified; M96.1 Postlaminectomy syndrome, not elsewhere classified; M54.16 Radiculopathy, lumbar region; T85.192A Other mechanical complication of implanted electronic neurostimulator of spinal cord electrode (lead), initial encounter; Z79.899 Other long term (current) drug therapy | CPT/HCPCS: 99212 ==

== ENCOUNTER 2023-10-14 14:21 | Outpatient (AMB) | payer OTHER, SELFPAY ==
[2023-10-14 14:28] VITALS: BP 138/81; PULSE 101; O2SAT 97; BMI 29.3
--- NOTE | 2023-10-14 14:28 | A.OFFVIS_ITS ---
Vital Signs 10/14/23 14:28 Height 5 ft 11 in Weight 210 lb BMI 29.3 BP 138/81 Blood Pressure Location Lt brachial Position Sitting Pulse 101 H Pulse Source Pulse Oximeter Pulse Oximetry (%) 97 Oxygen Delivery Method Room Air Intake Visit Reasons: Back Pain Allergies simvastatin [From Zocor] Allergy (Intermediate, Verified 10/14/23 14:28) itching/mouth swelling ondansetron [From Zofran] Adverse Reaction (Intermediate, Verified 10/14/23 14:28) extreme redness at injection site Medication List - Last Reconciled 10/14/23 by Sharon Mandel cephalexin 1,000 mg (2 x 500 mg) PO Q8H 15 days cyclobenzaprine 5 mg PO TID PRN 30 days diclofenac sodium 75 mg PO BID PRN 30 days glipizide 5 mg PO DAILY lidocaine 5% 3 patches topical DAILY PRN 30 days lidocaine 5% 1 appl topical BEDTIME PRN 30 days metformin 500 mg PO BID omeprazole 20 mg PO DAILY oxycodone-acetaminophen 7.5-325 mg (Percocet) 1 tab PO Q8H PRN 5 days pregabalin (Lyrica) 75 mg PO BID 30 days sumatriptan succinate 50 mg orally PRN headache, may repeat once in 2 hours if needed but no more than 2 tablets a day. 30 days HPI Comments Details: Luis Enrique presents back to the office today for follow-up back pain He would like update on SCS revision surgery. Patient was advised this was denied by his workmen's comp insurance He reports Lyrica was also denied by his workmen's comp. They did fill his cyclobenzaprine. He needs refills on his lidocaine patches, he has been prescribed 3 patches daily although they are giving him only 30 patches for a 30 day supply. He would like this amended. Prior: Mr. Lemus is back in my office today for evaluation in the follow-up. Julia Carreno tactical/mobile watch officer and official home health clinician helped us to maintain this conversation. The patient workman's comp insurance did not approve his revision of spinal cord stimulator procedure. They also did not approve gabapentin I prescribed for the patient. I recommended patient to close his case and go on regular Medicare and Medicaid. He is disabled individual and he was paying Federal taxes for at least 10 years. Therefore he is eligible for Medicare and if his income is not very high probably for Medicaid as well. In any way if regular traditional insurance instead of workman's comp will be on my way we would be already performing the revision procedure. He also requests me to prescribe cyclobenzaprine and Lyrica. I will prescribe those medications for him to help his discomfort. He continues to reports the increase of the discomfort in the projection of the scar of the lumbar spine. He believes that when I was removing the staple taking care of him in postoperative time I pulled out 1 of his epidural leads. At the same time he reports that stimulation is appropriate and covers the most of his lower extremities pain. He also believes that there is inflammation in the area of scarring tissues. I explained to him that of course body reaction to foreign objects always produces inflammation to certain extent, the doug tographs he demonstrated to me of his back performed appropriately exactly do not demonstrate any inflammation in the area of the insertion of the electrodes because they do not show any redness any major swelling, it would be documented to have increased temperature if he would have infection and inflammation. I discussed this situation with his neurosurgeon Dr. Linda Moulton. My idea was to find a plastic surgeon to excise the paper thin skin covering the current anchors of the spinal cord stimulator. Dr. Velez recommended to remove current thoracic placed spinal cord stimulator and reinsert the spinal cord stimulator in the projection of the higher level of the lower thoracic upper lumbar spine avoid the scarring tissue and then t to tunnel the leads back to the battery of the patient through the more thick paraspinal tissues. I agreed with Dr. Moulton's opinion and I offered to the patient to have this procedure scheduled with Dr. Lombardo, using surgical approach in the T9 or T10 projection thoracic incision or go for this procedure with me where I will insert 2 new leads into his epidural space in the projection of approximate T11-T10 projection. He agreed to go for procedure with me. I might request an assistance of a general surgeon to help me to close the wound after removal of the old spinal cord stimulator leads and surrounding scar tissue. We also discussed possibility of treating his pain with systemic opioid medications. For this he needs to become member of our chronic opioid program. In the past requested me to send him for MRI of the cervical spine. Mostly complains on pain in the projection of the battery site as well as cervicalgia neck pain. He was sent for MRI and the results of the MRI are as below. He has significant spondylosis of this cervical spine as well as several levels of the foraminal stenosis. He reports numbness and awkwardness of bilateral upper extremities. However when I offered him to consider neurosurgical consult he adamantly refused. Then I offered him to have an attempt of therapeutic C4-C5 C6 medial branch block bilateral on the cervical spine. He never went for this procedure. He requests me to prescribe lidocaine ointment to treat his neck pain. Prior : Next He has excellent results of the spinal cord stimulator he reports up to 80% of the improvement with better mobility better activities of d aily living and excellent social interactions.? He reports better night's sleep. on the background of better pain relief from [employer] spinal cord stimulator in the lumbar spine he reports increased discomfort in the cervical spine. He reports that cervical spine prevents him from having good night's sleep. He denies pain radiation into bilateral upper extremities but reports relative weakness of bilateral hands. He reports that in the past about 20 years ago he was examined with MRI of the cervical spine and he was offered surgery on his cervical spine. At that time he declined to go for the surgery. He would like to explore those options today again. He requests me to send him for MRI of the cervical spine. Prior: Status post implant of spinal cord stimulator [employer].? He reports? 65-70 % pain improvement.? He reports good mobility and activities of daily living improvement on the device.? He reports better night sleep.? She reports minor discomfort in the projection of the implantation of the machine.? He is wearing lidocaine patch in that area.? Of the areas of implantation or completely dry the scars are very well-healed there is no signs of inflammation no redness no swelling no pathological discharge noted.? He wears lidocaine patch in the area of the below the implantation of the device.? I recommended him instead to were Aspercreme with salicylate 12 hours on 12 hours off.? By this time I think it is safe for him to take diclofenac as well.? He needs to continue to were abdominal binder for yet another 5 weeks.? He needs to avoid heavy lifting torso twisting sharp bending for the next 5 weeks.? Next appointment is as needed. history of longstanding back pain. This was a result of an injury sustained at work. He has undergone multiple lumbar surgeries, the last being this past September with Dr. Velez. He reports some improvement in his discomfort but overall rates his pain a 7-8/10. He states his pain radiates across his low back as well as down both legs with associated numbness and tingling. He also reports intermittent weakness. He is currently ambulating with a cane and has been for over 20 years. [facility] Medical History (Updated 04/21/23 @ 16:45 by Juan Salamanca MD) Spinal cord stimulator dysfunction Arthritis GERD (gastroesophageal reflux disease) Diabetes Elevated cholesterol Genital warts Benign prostate hyperplasia Hyperlipidemia History of pilonidal cyst Decreased hearing Lumbar back pain Surgical History Hx laparoscopic cholecystectomy History of back surgery Social History Patient Tobacco Use Status: Current everyday Tobacco user Tobacco use type: Cigarette Cigarettes Per Day: 15 Years Smoked: 30+ Review of Systems Const All systems reviewed & are unremarkable except as noted in HPI and below Physical Exam Vital Signs: Last Vital Signs Pulse 101 H 10/14/23 14:28 BP 138/81 10/14/23 14:28 Pulse Ox 97 10/14/23 14:28 Oxygen Delivery Method Room Air 10/14/23 14:28 BMI result Body Mass Index 29.3 General: awake, alert, oriented. Answers questions appropriately. Fully engaged in examination. Skin: warm, dry, intact HEENT: Normocephalic. Hearing intact. Cardiac: External chest normal in appearance. Respiratory: No cough, audible wheezing or stridor. Abdomen: without gross distension. MS: No obvious swelling or deformities. Neurological: Oriented to person, place, time and situation. Thought process intact. Ambulates with the use of a cane Psychiatric: Appropriate mood and affect. Good judgment and insight. Assessment & Plan Assessment & Plan (1) Degeneration, intervertebral disc, cervical: Code(s): M50.30 - Other cervical disc degeneration, unspecified cervical region Category: Medical (2) Spondylosis of cervical joint without myelopathy: Code(s): M47.812 - Spondylosis without myelopathy or radiculopathy, cervical region Category: Medical (3) Peripheral neuropathy: Code(s): G62.9 - Polyneuropathy, unspecified Category: Medical (4) Post-laminectomy syndrome: Code(s): M96.1 - Postlaminectomy syndrome, not elsewhere classified Category: Medical (5) Bilateral lumbar radiculopathy: Code(s): M54.16 - Radiculopathy, lumbar region Category: Medical (6) Spinal cord stimulator dysfunction: Code(s): T85.192A - Other mechanical complication of implanted electronic neurostimulator of spinal cord electrode (lead), initial encounter Category: Medical (7) Malfunction of spinal cord stimulator: Code(s): T85.192A - Other mechanical complication of implanted electronic neurostimulator of spinal cord electrode (lead), initial encounter Category: Medical Plan Patient advised to follow up with his workman's comp trial attorney to discuss the revision surgery denial. New order placed for lidocaine patches, apply 3 patches daily as needed Patient discuss Lyrica denial with his trial attorney also Continuous cyclobenzaprine as needed All questions and concerns were answered, patient agrees with plan. Follow-up after review of case with workman's comp, sooner if needed Medications: Changed From lidocaine 5% leave on most painful area for up to 12 hrs 3 patches topical DAILY 30 days PRN 30 ea 8RF pain, severe G62.9 - Polyneuropathy, unspecified To lidocaine 5% leave on most painful area for up to 12 hrs 3 patches topical DAILY PRN 30 ea 8RF pain, severe G62.9 - Polyneuropathy, unspecified Coding Level of Care Code Est Pt Level 3 (00237) Complex EM visit Add On G2211 Diagnoses Degeneration, intervertebral disc, cervical M50.30 Spondylosis of cervical joint without myelopathy M47.812 Peripheral neuropathy G62.9 Post-laminectomy syndrome M96.1 Bilateral lumbar radiculopathy M54.16 Spinal cord stimulator dysfunction T85.192A
== END 2023-10-14 15:11 | disposition home or self-care (01) ==
PROVIDERS: PCP Internal Medicine; Visit Provider Registered Nurse Emergency
DX: M50.30 Other cervical disc degeneration, unspecified cervical region (principal); M47.812 Spondylosis without myelopathy or radiculopathy, cervical region; G62.9 Polyneuropathy, unspecified; M96.1 Postlaminectomy syndrome, not elsewhere classified; M54.16 Radiculopathy, lumbar region; T85.192A Other mechanical complication of implanted electronic neurostimulator of spinal cord electrode (lead), initial encounter
CPT/HCPCS: 99213; G2211

== ENCOUNTER → 2023-10-14 14:21 | Outpatient (BNVA) | payer OTHER, SELFPAY | PROVIDERS: PCP Internal Medicine; Visit Provider Anesthesiology | DX: M50.30 Other cervical disc degeneration, unspecified cervical region (principal); M47.812 Spondylosis without myelopathy or radiculopathy, cervical region; G62.9 Polyneuropathy, unspecified; M96.1 Postlaminectomy syndrome, not elsewhere classified; M54.16 Radiculopathy, lumbar region; T85.192A Other mechanical complication of implanted electronic neurostimulator of spinal cord electrode (lead), initial encounter | CPT/HCPCS: 99212 ==

== ENCOUNTER 2023-11-04 15:44 | Outpatient (AMB) | payer OTHER, SELFPAY ==
--- NOTE | 2023-11-04 15:44 | A.OFFVIS_ITS ---
Intake Visit Reasons: workers comp need information of medication Allergies simvastatin [From Zocor] Allergy (Intermediate, Verified 11/04/23 15:45) itching/mouth swelling ondansetron [From Zofran] Adverse Reaction (Intermediate, Verified 11/04/23 15:45) extreme redness at injection site HPI Comments Details: Luis Enrique is on the phone today for follow-up back pain, the conversation was held in [place] with the help of Julia Carreno county health officer who is certified superintendent operating. His insurance company which is [employer] insurance from [place] becomes hindrance for the treatment of his pain. This company denies everything. They denied medications to treat his pain they denied revision of spinal cord stimulator, they are not conducive for helping this patient. I contacted his [place] litigation attorney associate in the order to try to find out what we can do to help them to approve those medications and revision of spinal cord stimulator procedure for this patient. So far I did not hear anything from the litigation attorney associate. In the past I recommended the patient to drop his case and go for Medicare and Medicaid which would be much easier to help him with his condition but patient each time adamantly refuses. He developed scar tissue in the projection of the spinal cord stimulator device lumbar spine implantation site and the procedure is necessary to remove the scar tissue and help him with the local pain in this area. He continues to reports the increase of the discomfort in the projection of the scar of the lumbar spine. He believes that when I was removing the staple taking care of him in postoperative time I pulled out 1 of his epidural leads. At the same time he reports that stimulation is appropriate and covers the most of his lower extremities pain. He also believes that there is inflammation in the area of scarring tissues. I explained to him that of course body reaction to foreign objects always produces inflammation to certain extent, the photographs he demonstrated to me of his back performed appropriately exactly do not demonstrate any inflammation in the area of the insertion of the electrodes because they do not show any redness any major swelling, it would be documented to have increased temperature if he would have infection and inflammation. I discussed this situation with his neurosurgeon Dr. Linda Moulton. My idea was to find a plastic surgeon to excise the paper thin skin covering the current anchors of the spinal cord stimulator. Dr. Velez recommended to remove current thoracic placed spinal cord stimulator and reinsert the spinal cord stimulator in the projection of the higher level of the lower thoracic upper lumbar spine avoid the scarring tissue and then t to tunnel the leads back to the battery of the patient through the more thick paraspinal tissues. I agreed with Dr. Moulton's opinion and I offered to the patient to have this procedure scheduled with Dr. Lombardo, using surgical approach in the T9 or T10 projection thoracic incision or go for this procedure with me where I will insert 2 new leads into his epidural space in the projection of approximate T11-T10 projection. He agreed to go for procedure with me. I might request an assistance of a general surgeon to help me to close the wound after removal of the old spinal cord stimulator leads and surrounding scar tissue. We also discussed possibility of treating his pain with systemic opioid medications. For this he needs to become member of our chronic opioid program. In the past requested me to send him for MRI of the cervical spine. Mostly complains on pain in the projection of the battery site as well as cervicalgia neck pain. He was sent for MRI and the results of the MRI are as below. He has significant spondylosis of this cervical spine as well as several levels of the foraminal stenosis. He reports numbness and awkwardness of bilateral upper extremities. However when I offered him to consider neurosurgical consult he adamantly refused. Then I offered him to have an attempt of therapeutic C4-C5 C6 medial branch block bilateral on the cervical spine. He never went for this procedure. He requests me to prescribe lidocaine ointment to treat his neck pain. Prior : Next He has excellent results of the spinal cord stimulator he reports up to 80% of the improvement with better mobility better activities of daily living and excellent social interactions.? He reports better night's sleep. on the background of better pain relief from [employer] spinal cord stimulator in the lumbar spine he reports increased discomfort in the cervical spine. He reports that cervical spine prevents him from having good night's sleep. He denies pain radiation into bilateral upper extremities but reports relative weakness of bilateral hands. He reports that in the past about 20 years ago he was examined with MRI of the cervical spine and he was offered surgery on his cervical spine. At that time he declined to go for the surgery. He would like to explore those options today again. He requests me to send him for MRI of the cervical spine. [facility] Medical History (Updated 04/21/23 @ 16:45 by Juan Salamanca MD) Spinal cord stimulator dysfunction Arthritis GERD (gastroesophageal reflux disease) Diabetes Elevated cholesterol Genital warts Benign prostate hyperplasia Hyperlipidemia History of pilonidal cyst Decreased hearing Lumbar back pain Surgical History Hx laparoscopic cholecystectomy History of back surgery Social History Patient Tobacco Use Status: Current everyday Tobacco user Tobacco use type: Cigarette Cigarettes Per Day: 15 Years Smoked: 30+ Review of Systems Const All systems reviewed & are unremarkable except as noted in HPI and below Telehealth Telehealth Telehealth Platform: Telephone Location of provider rendering services: practice address Location of patient: address on file Patient Identification confirmed using: Name, : Yes Telehealth method: voice only Patient verbally consented to treatment: Yes Patient verbally consented to billing insurance company: Yes Patient informed of any privacy concerns related to visit: Yes Assessment & Plan Assessment & Plan (1) Degeneration, intervertebral disc, cervical: Code(s): M50.30 - Other cervical disc degeneration, unspecified cervical region Category: Medical (2) Spondylosis of cervical joint without myelopathy: Code(s): M47.812 - Spondylosis without myelopathy or radiculopathy, cervical region Category: Medical (3) Peripheral neuropathy: Code(s): G62.9 - Polyneuropathy, unspecified Category: Medical (4) Post-laminectomy syndrome: Code(s): M96.1 - Postlaminectomy syndrome, not elsewhere classified Category: Medical (5) Bilateral lumbar radiculopathy: Code(s): M54.16 - Radiculopathy, lumbar region Category: Medical (6) Spinal cord stimulator dysfunction: Code(s): T85.192A - Other mechanical complication of implanted electronic neurostimulator of spinal cord electrode (lead), initial encounter Category: Medical (7) Malfunction of spinal cord stimulator: Code(s): T85.192A - Other mechanical complication of implanted electronic neurostimulator of spinal cord electrode (lead), initial encounter Category: Medical Plan I contacted his [place] workman's comp litigation attorney associate to discuss the revision surgery denial. I also need to know what we can do to help him to receive his medications which are not being covered by his workman's comp insurance. Very little I can do for him while his insurance is [employer] comp. He adamantly refuses to close his case and go for Medicaid and Medicare. Patient Instructions: I here by testify that I spent today 38 minutes in conversation with this patient as well as in conversation with his litigation attorney associate's office as well as planning his care and organizing this note. big data lead Julia Carreno who is certified superintendent operating helped us to maintain the conversation in [place]ish with this patient. Coding Level of Care Code Tele Est Pt Level 4 (56977) Diagnoses Degeneration, intervertebral disc, cervical M50.30 Spondylosis of cervical joint without myelopathy M47.812 Peripheral neuropathy G62.9 Post-laminectomy syndrome M96.1 Bilateral lumbar radiculopathy M54.16 Spinal cord stimulator dysfunction T85.192A
== END 2023-11-04 16:02 | disposition home or self-care (01) ==
LOC: HO.PMC 15:44
PROVIDERS: PCP Internal Medicine; Visit Provider Anesthesiology
DX: M50.30 Other cervical disc degeneration, unspecified cervical region (principal); M47.812 Spondylosis without myelopathy or radiculopathy, cervical region; G62.9 Polyneuropathy, unspecified; M96.1 Postlaminectomy syndrome, not elsewhere classified; M54.16 Radiculopathy, lumbar region; T85.192A Other mechanical complication of implanted electronic neurostimulator of spinal cord electrode (lead), initial encounter
CPT/HCPCS: 99214

== ENCOUNTER → 2023-11-04 15:44 | Outpatient (BNVA) | payer OTHER, SELFPAY | PROVIDERS: PCP Internal Medicine; Visit Provider Anesthesiology ==

== ENCOUNTER 2024-02-14 13:58 | Outpatient (AMB) | payer OTHER, SELFPAY ==
[2024-02-14 14:03] VITALS: BP 160/77; PULSE 72; RESP 16; BMI 29.3
--- NOTE | 2024-02-14 14:03 | A.OFFVIS_ITS ---
Vital Signs 02/14/24 14:03 Height 5 ft 11 in Weight 210 lb BMI 29.3 BP 160/77 H Blood Pressure Location Lt brachial Position Sitting Respiration 16 Pulse 72 Pulse Source Pulse Oximeter Intake Visit Reasons: Back Pain Machining Technician Required: Yes Machining Technician Services: Machining Technician Present Machining Technician Name: [id number] Allergies simvastatin [From Zocor] Allergy (Intermediate, Verified 02/14/24 14:06) itching/mouth swelling ondansetron [From Zofran] Adverse Reaction (Intermediate, Verified 02/14/24 14:06) extreme redness at injection site Medication List - Last Reconciled 02/14/24 by Berna Gomez, JACKY cephalexin 1,000 mg (2 x 500 mg) PO Q8H 15 days cyclobenzaprine 5 mg PO TID PRN 30 days diclofenac sodium 75 mg PO BID PRN 30 days glipizide 5 mg PO DAILY lidocaine 5% 1 appl topical BEDTIME PRN 30 days lidocaine 5% 3 patches topical DAILY PRN metformin 500 mg PO BID omeprazole 20 mg PO DAILY oxycodone-acetaminophen 7.5-325 mg (Percocet) 1 tab PO Q8H PRN 5 days pregabalin (Lyrica) 75 mg PO BID 30 days sumatriptan succinate 50 mg orally PRN headache, may repeat once in 2 hours if needed but no more than 2 tablets a day. 30 days HPI Comments Details: Luis Enrique is in the office today to discuss future procedure of the revision of the spinal cord stimulator. We are planning to revise the device as it was described below. Risks and benefits were explained to the patient. I frankly told him that there is a possibility of losing the entire device. His insurance company finally approve the procedure. He also requests me to refill his lidocaine patches, lidocaine cream, as well as cyclobenzaprine. I will send those scripts to his pharmacy. He continues to reports the increase of the discomfort in the projection of the scar of the lumbar spine. He believes that when I was removing the staple taking care of him in postoperative time I pulled out 1 of his epidural leads. At the same time he reports that stimulation is appropriate and covers the most of his lower extremities pain. He also believes that there is inflammation in the area of scarring tissues. I explained to him that of course body reaction to foreign objects always produces inflammation to certain extent, the photographs he demonstrated to me of his back performed appropriately exactly do not demonstrate any inflammation in the area of the insertion of the electrodes because they do not show any redness any major swelling, it would be documented to have increased temperature if he would have infection and inflammation. I discussed this situation with his neurosurgeon Dr. Linda Moulton. My idea was to find a plastic surgeon to excise the paper thin skin covering the current anchors of the spinal cord stimulator. Dr. Velez recommended to remove current thoracic placed spinal cord stimulator and reinsert the spinal cord stimulator in the projection of the higher level of the lower thoracic upper lumbar spine avoid the scarring tissue and then t to tunnel the leads back to the battery of the patient through the more thick paraspinal tissues. I agreed with Dr. Moulton's opinion and I offered to the patient to have this procedure scheduled with Dr. Lombardo, using surgical approach in the T9 or T10 projection thoracic incision or go for this procedure with me where I will insert 2 new leads into his epidural space in the projection of approximate T11-T10 projection. He agreed to go for procedure with me. I might request an assistance of a general surgeon to help me to close the wound after removal of the old spinal cord stimulator leads and surrounding scar tissue. We also discussed possibility of treating his pain with systemic opioid medications. For this he needs to become member of our chronic opioid program. In the past requested me to send him for MRI of the cervical spine. Mostly complains on pain in the projection of the battery site as well as cervicalgia neck pain. He was sent for MRI and the results of the MRI are as below. He has significant spondylosis of this cervical spine as well as several levels of the foraminal stenosis. He reports numbness and awkwardness of bilateral upper extremities. However when I offered him to consider neurosurgical consult he adamantly refused. Then I offered him to have an attempt of therapeutic C4-C5 C6 medial branch block bilateral on the cervical spine. He never went for this procedure. He requests me to prescribe lidocaine ointment to treat his neck pain. Prior : Next He has excellent results of the spinal cord stimulator he reports up to 80% of the improvement with better mobility better activities of daily living and excellent social interactions.? He reports better night's sleep. on the background of better pain relief from [employer] spinal cord stimulator in the lumbar spine he reports increased discomfort in the cervical spine. He reports that cervical spine prevents him from having good night's sleep. He denies pain radiation into bilateral upper extremities but reports relative weakness of bilateral hands. He reports that in the past about 20 years ago he was examined with MRI of the cervical spine and he was offered surgery on his cervical spine. At that time he declined to go for the surgery. He would like to explore those options today again. He requests me to send him for MRI of the cervical spine. [facility] Medical History (Updated 04/21/23 @ 16:45 by Juan Salamanca MD) Spinal cord stimulator dysfunction Arthritis GERD (gastroesophageal reflux disease) Diabetes Elevated cholesterol Genital warts Benign prostate hyperplasia Hyperlipidemia History of pilonidal cyst Decreased hearing Lumbar back pain Surgical History Hx laparoscopic cholecystectomy History of back surgery Social History Patient Tobacco Use Status: Current everyday Tobacco user Tobacco use type: Cigarette Cigarettes Per Day: 15 Years Smoked: 30+ Review of Systems Const All systems reviewed & are unremarkable except as noted in HPI and below Physical Exam Vital Signs: Last Vital Signs Pulse 72 02/14/24 14:03 Resp 16 02/14/24 14:03 BP 160/77 H 02/14/24 14:03 BMI result Body Mass Index 29.3 General: awake, alert, oriented. Answers questions appropriately. Fully engaged in examination. Skin: warm, dry, intact HEENT: Normocephalic. Hearing intact. Cardiac: External chest normal in appearance. Respiratory: No cough, audible wheezing or stridor. Abdomen: without gross distension. MS: No obvious swelling or deformities. Neurological: Oriented to person, place, time and situation. Thought process intact. Ambulates with the use of a cane Psychiatric: Appropriate mood and affect. Good judgment and insight. Assessment & Plan Assessment & Plan (1) Degeneration, intervertebral disc, cervical: Code(s): M50.30 - Other cervical disc degeneration, unspecified cervical region Category: Medical (2) Spondylosis of cervical joint without myelopathy: Code(s): M47.812 - Spondylosis without myelopathy or radiculopathy, cervical region Category: Medical (3) Peripheral neuropathy: Code(s): G62.9 - Polyneuropathy, unspecified Category: Medical (4) Post-laminectomy syndrome: Code(s): M96.1 - Postlaminectomy syndrome, not elsewhere classified Category: Medical (5) Bilateral lumbar radiculopathy: Code(s): M54.16 - Radiculopathy, lumbar region Category: Medical (6) Spinal cord stimulator dysfunction: Code(s): T85.192A - Other mechanical complication of implanted electronic neurostimulator of spinal cord electrode (lead), initial encounter Category: Medical (7) Malfunction of spinal cord stimulator: Code(s): T85.192A - Other mechanical complication of implanted electronic neurostimulator of spinal cord electrode (lead), initial encounter Category: Medical Plan Finally [employer] insurance approved the revision procedure. Patient was informed today about risks and benefits of the procedure as well as possibility of losing the spinal cord stimulator in its entirety. The patient agreed to go for the procedure he is scheduled to go for the procedure under general anesthesia. Medications: Refilled lidocaine 5% 1 appl topical BEDTIME PRN 30 grams 8RF pain 30 days cyclobenzaprine 5 mg PO TID PRN 90 tabs 3RF muscle spasm 30 days lidocaine 5% leave on most painful area for up to 12 hrs 3 patches topical DAILY PRN 30 ea 8RF pain, severe G62.9 - Polyneuropathy, unspecified Coding Level of Care Code Est Pt Level 4 (05382) Diagnoses Degeneration, intervertebral disc, cervical M50.30 Spondylosis of cervical joint without myelopathy M47.812 Peripheral neuropathy G62.9 Post-laminectomy syndrome M96.1 Bilateral lumbar radiculopathy M54.16 Spinal cord stimulator dysfunction T85.192A
== END 2024-02-14 14:30 | disposition home or self-care (01) ==
PROVIDERS: PCP Internal Medicine; Visit Provider Anesthesiology
DX: M50.30 Other cervical disc degeneration, unspecified cervical region (principal); M47.812 Spondylosis without myelopathy or radiculopathy, cervical region; G62.9 Polyneuropathy, unspecified; M96.1 Postlaminectomy syndrome, not elsewhere classified; M54.16 Radiculopathy, lumbar region; T85.192A Other mechanical complication of implanted electronic neurostimulator of spinal cord electrode (lead), initial encounter
CPT/HCPCS: 99214

== ENCOUNTER → 2024-02-14 13:58 | Outpatient (BNVA) | payer OTHER, SELFPAY | PROVIDERS: PCP Internal Medicine; Visit Provider Anesthesiology | DX: M50.30 Other cervical disc degeneration, unspecified cervical region (principal); M47.812 Spondylosis without myelopathy or radiculopathy, cervical region; G62.9 Polyneuropathy, unspecified; M96.1 Postlaminectomy syndrome, not elsewhere classified; M54.16 Radiculopathy, lumbar region; T85.192A Other mechanical complication of implanted electronic neurostimulator of spinal cord electrode (lead), initial encounter | CPT/HCPCS: 99212 ==

== ENCOUNTER 2024-05-11 14:29 | Outpatient (AMB) | payer OTHER, SELFPAY ==
--- NOTE | 2024-05-11 14:35 | MHC.OFFVIS ---
Vital Signs 05/11/24 14:42 Height 5 ft 11 in Weight 208 lb 2 oz BMI 29.0 BP 133/85 Blood Pressure Location Rt brachial Position Sitting Pulse 93 Pulse Source Pulse Oximeter Pulse Oximetry (%) 97 Oxygen Delivery Method Room Air Intake Visit Reasons: REVISION PROCEDURE DISCUSSION Automotive Repair Technician Required: Yes Automotive Repair Technician Language: Mental Retardation Nurse Services: Automotive Repair Technician Present Automotive Repair Technician Name: Pedro([id number]) Allergies simvastatin [From Zocor] Allergy (Intermediate, Verified 05/11/24 14:35) itching/mouth swelling ondansetron [From Zofran] Adverse Reaction (Intermediate, Verified 05/11/24 14:35) extreme redness at injection site HPI Comments Details: Luis Enrique is in the office today to discuss future procedure of the revision of the spinal cord stimulator. business process engineer from voice Pedro [id number] to maintain this conversation in [place]. Very detailed and prolonged conversation was held today about the revision of spinal cord stimulator. At the end of the conversation I told him that I can not guarantee that as a result of the revision I will preserve the function of the spinal cord stimulator. I told him that it is possible that I would have to remove the battery once I will not be able to establish spinal cord stimulator leads in his thoracic spine. Patient expressed understanding. He requested me to prescribe him again Lyrica and lidocaine patch. I agreed and we will do the prescription. He also requested me to prescribe him sumatriptan however I decline this request because chronic prescription of sumatriptan would require neurologist expertise. I also explained to him that possibility exists to establish intrathecal pain pump if I will lose the ability to insert a new system of spinal cord stimulator, I also explained to him that pain pump system and I showed him the model of the device. Patient's seem to be not very happy to see the device. At this time I do not think he is very comfortable with the idea of the revision. I myself also not looking forward to perform this procedure however I assured him that I will do my best to preserve the function of the spinal cord stimulator. Prior: He continues to reports the increase of the discomfort in the projection of the scar of the lumbar spine. He believes that when I was removing the staple taking care of him in postoperative time I pulled out 1 of his epidural leads. At the same time he reports that stimulation is appropriate and covers the most of his lower extremities pain. He also believes that there is inflammation in the area of scarring tissues. I explained to him that of course body reaction to foreign objects always produces inflammation to certain extent, the photographs he demonstrated to me of his back performed appropriately exactly do not demonstrate any inflammation in the area of the insertion of the electrodes because they do not show any redness any major swelling, it would be documented to have increased temperature if he would have infection and inflammation. I discussed this situation with his neurosurgeon Dr. Linda Moulton. My idea was to find a plastic surgeon to excise the paper thin skin covering the current anchors of the spinal cord stimulator. Dr. Velez recommended to remove current thoracic placed spinal cord stimulator and reinsert the spinal cord stimulator in the projection of the higher level of the lower thoracic upper lumbar spine avoid the scarring tissue and then t to tunnel the leads back to the battery of the patient through the more thick paraspinal tissues. I agreed with Dr. Moulton's opinion and I offered to the patient to have this procedure scheduled with Dr. Lombardo, using surgical approach in the T9 or T10 projection thoracic incision or go for this procedure with me where I will insert 2 new leads into his epidural space in the projection of approximate T11-T10 projection. He agreed to go for procedure with me. I might request an assistance of a general surgeon to help me to close the wound after removal of the old spinal cord stimulator leads and surrounding scar tissue. We also discussed possibility of treating his pain with systemic opioid medications. For this he needs to become member of our chronic opioid program. In the past requested me to send him for MRI of the cervical spine. Mostly complains on pain in the projection of the battery site as well as cervicalgia neck pain. He was sent for MRI and the results of the MRI are as below. He has significant spondylosis of this cervical spine as well as several levels of the foraminal stenosis. He reports numbness and awkwardness of bilateral upper extremities. However when I offered him to consider neurosurgical consult he adamantly refused. Then I offered him to have an attempt of therapeutic C4-C5 C6 medial branch block bilateral on the cervical spine. He never went for this procedure. He requests me to prescribe lidocaine ointment to treat his neck pain. Prior : Next He has excellent results of the spinal cord stimulator he reports up to 80% of the improvement with better mobility better activities of daily living and excellent social interactions.? He reports better night's sleep. on the background of better pain relief from [employer] spinal cord stimulator in the lumbar spine he reports increased discomfort in the cervical spine. He reports that cervical spine prevents him from having good night's sleep. He denies pain radiation into bilateral upper extremities but reports relative weakness of bilateral hands. He reports that in the past about 20 years ago he was examined with MRI of the cervical spine and he was offered surgery on his cervical spine. At that time he declined to go for the surgery. He would like to explore those options today again. He requests me to send him for MRI of the cervical spine. [facility] Medical History Spinal cord stimulator dysfunction Arthritis GERD (gastroesophageal reflux disease) Diabetes Elevated cholesterol Genital warts Benign prostate hyperplasia Hyperlipidemia History of pilonidal cyst Decreased hearing Lumbar back pain Surgical History Hx laparoscopic cholecystectomy History of back surgery Social History Patient Tobacco Use Status: Current everyday Tobacco user Tobacco use type: Cigarette Cigarettes Per Day: 15 Years Smoked: 30+ Review of Systems Const All systems reviewed & are unremarkable except as noted in HPI and below Physical Exam Vital Signs: Last Vital Signs Pulse 93 05/11/24 14:42 BP 133/85 05/11/24 14:42 Pulse Ox 97 05/11/24 14:42 Oxygen Delivery Method Room Air 05/11/24 14:42 BMI result Body Mass Index 29.0 General: awake, alert, oriented. Answers questions appropriately. Fully engaged in examination. Skin: warm, dry, intact HEENT: Normocephalic. Hearing intact. Cardiac: External chest normal in appearance. Respiratory: No cough, audible wheezing or stridor. Abdomen: without gross distension. MS: No obvious swelling or deformities. Neurological: Oriented to person, place, time and situation. Thought process intact. Ambulates with the use of a cane Psychiatric: Appropriate mood and affect. Good judgment and insight. Assessment & Plan Assessment & Plan (1) Degeneration, intervertebral disc, cervical: Code(s): M50.30 - Other cervical disc degeneration, unspecified cervical region Category: Medical (2) Spondylosis of cervical joint without myelopathy: Code(s): M47.812 - Spondylosis without myelopathy or radiculopathy, cervical region Category: Medical (3) Peripheral neuropathy: Code(s): G62.9 - Polyneuropathy, unspecified Category: Medical (4) Post-laminectomy syndrome: Code(s): M96.1 - Postlaminectomy syndrome, not elsewhere classified Category: Medical (5) Bilateral lumbar radiculopathy: Code(s): M54.16 - Radiculopathy, lumbar region Category: Medical (6) Spinal cord stimulator dysfunction: Code(s): T85.192A - Other mechanical complication of implanted electronic neurostimulator of spinal cord electrode (lead), initial encounter Category: Medical (7) Malfunction of spinal cord stimulator: Code(s): T85.192A - Other mechanical complication of implanted electronic neurostimulator of spinal cord electrode (lead), initial encounter Category: Medical Plan Finally [email or web address] approved the revision procedure. However the patient is reluctant to go for the procedure. Risks and benefits very carefully explained to the patient. He is afraid to lose the action of the device while doing the revision. I assured him that I will do the best to preserve the function however I can not guarantee 100% that I will establish a new epidural leads. We again discussed possibility of treatment of his condition with oral medications. He requested the renewal of the medications. I agreed and I will do renewal of lidocaine patch and Lyrica medication. However I am not tubal with chronic continuous prescription of the sumatriptan. I recommended him to find a primary care physician or neurologist would be comfortable to prescribe this medication for him.. Intrathecal pain pump was explained to the patient. The discussion was held about the pain pump. Patient's seem to be not very eager to accept this procedure as well. Medications: Refilled lidocaine 5% leave on most painful area for up to 12 hrs 3 patches topical DAILY PRN 30 ea 8RF pain, severe G62.9 - Polyneuropathy, unspecified pregabalin (Lyrica) 75 mg PO BID 30 days 60 caps 5RF Patient Instructions: I here by testify that I spent 45 minutes in conversation with this patient as well as planning his care and organizing this note. business process engineer as above was helping me to maintain this conversation in [place]. Coding Level of Care Code Est Pt Level 5 (36580) Diagnoses Degeneration, intervertebral disc, cervical M50.30 Spondylosis of cervical joint without myelopathy M47.812 Peripheral neuropathy G62.9 Post-laminectomy syndrome M96.1 Bilateral lumbar radiculopathy M54.16 Spinal cord stimulator dysfunction T85.192A
[2024-05-11 14:42] VITALS: BP 133/85; PULSE 93; O2SAT 97; BMI 29.0
--- OUTSIDE RECORDS SUMMARY | 2024-05-11 15:59 | XMS_ITS | Clinical Summary ---
Author Organization [facility] Address [address] [place] [phone] Phone Care Team Providers Care Dependency Case Manager Name Role Phone Swapna Koch MD Primary Care Provider [phone] Allergies Active Allergy Reactions Criticality Noted Date Comments Simvastatin Hives,Itching High 07/11/2013 Medications amoxicillin-cla vulanate (AUGMENTIN) 875-125 mg per tablet Take 1 Tablet by mouth 2 times daily. 4 Active clotrimazole-be tamethasone (LOTRISONE) 1-0.05 % cream APPLY LOCALLY TWICE A DAY 4 Active diclofenac (VOLTAREN) 1 % topical gel Apply 1 Dose topically 2 times daily. 4 Active fenofibrate (TRICOR) 145 mg tablet TOME SUSAN TABLETA POR VIA ORAL TODOS [place] 0 Active hydrocortisone 2.5 % cream Apply locally twice a day 2 Active SUMAtriptan (IMITREX) 50 mg tablet Take 1 Tablet by mouth daily as needed for Migraine. May repeat dose once after 2 hours, if needed. 3 Active tamsulosin (FLOMAX) 0.4 mg 24 hr capsule Take 1 Capsule by mouth daily. Take 30 mins after same meal every day.TOME 1 CAPSULA POR VIA ORAL TODOS [place] 3 Active Autolet lancing device check twice daily 6 Active glucose blood test strip Test 2-3 times a day 1 Active blood-glucose meter misc USE DIRECTED. 6 Active omeprazole (PriLOSEC) [address] capsule Take 1 capsule (20 mg total) by mouth 1 (one) time each day. TAKE 1 CAPSULE BY MOUTH EVERY DAY 90 capsule 2 4 Active glipiZIDE (GLUCOTROL) 5 mg tablet Take 1 tablet (5 mg total) by mouth 2 (two) times a day before meals. TAKE ONE TABLET BY MOUTH IN THE MORNING AND TWO TABLETS AT NIGHT 270 tablet 2 4 Active metFORMIN (GLUCOPHAGE) 500 mg tablet Take 1 tablet (500 mg total) by mouth 1 (one) time each day with breakfast. TAKE 2 TABLETS BY MOUTH DAILY WITH BREAKFAST AND 1 TABLET AT BEDTIME 270 tablet 1 5 Active pregabalin (LYRICA) 75 mg capsule Take 1 capsule (75 mg total) by mouth 2 (two) times a day. Max Daily Amount: 150 mg Active Active Problems Problem Noted Date Diagnosed Date Cervical spondylosis with radiculopathy 12/09/19 Overview (11/19/2023): Last Assessment & Plan: Unfortunately, Mr. Lemus was unable to start physical therapy as there was no location within easy reach in his hometown of [place] and he cannot tolerate sitting to go further away. We reviewed the cervical spine MRI findings from 09/03/2022 and I reiterated that I did not see a role for surgery at this point. We will have to hold off on PT for his neck until his lower back pain has been addressed. Decreased hearing 08/06/2020 Lumbar back pain 08/06/2020 Overview (11/19/2023): Last Assessment & Plan: This appointment and exam were done in conjunction with [facility] language services science interpreter Ivory #[id number]. Mr. Lemus did improve after his L3-4 decompression in September 2020. He had further improvement in the remaining back and leg symptoms after placement of a spinal cord stimulator with Dr. Salamanca. Unfortunately, he has had terrible localized pain at the incision since the removal of the svetlana and this pain radiates bilaterally to the lumbosacral junction and upper buttocks. He cannot lean back or place pressure on it and cannot sit for any extended period of time. There was some discussion with Dr. Salamanca about how superficial the leads are in this area and I understand that it was suggested he see plastic surgery to rotate more coverage in the area. The patient followed up with us for this as he has had successful lumbar surgery here. On exam, his lumbar incision is well-healed with a thin wide midline scar. I am able to palpate firm material deep to this which makes the patient jump from tenderness, presumably these of the wires leading to the battery pack. He is wearing multiple lidocaine patches in this area. Seated SLR is negative, strength 5/5, he ambulates with a cane. We discussed that I do not place spinal cord stimulators nor my usually involved in any revision though we have removed them. It seems to me that the simplest solution is to retunneled these leads through the deeper soft tissue before reconnecting to the battery pack. I will contact Dr. Salamanca to see if it is possible to do this. Hyperlipidemia 08/13/2017 Diabetes mellitus type 2, uncomplicated 08/06/19 18 Hypertension 08/05/2017 Benign prostate hyperplasia 10/01/2015 Genital warts 08/22/2013 Encounters Date Type Department Care Team Description 05/10/2024 2:30 PM EDT Office Visit Internal Medicine - [facility] [address] [facility] [address] [place] [address] Swapna Koch MD Type 2 diabetes mellitus without complication, without long-term current use of insulin (Primary Dx); Primary hypertension; Mixed hyperlipidemia; Lumbar back pain; Benign prostatic hyperplasia, unspecified whether lower urinary tract symptoms present 04/14/2024 10:07 AM EST - 04/14/2024 11:59 PM EST Hospital Encounter [facility] CT Scan [address] [place] [id number] Gross hematuria Discharge Disposition: Home or Self Care from Last 3 Months Surgical History Surgery Date Site/Laterality Comments BACK SURGERY PROCEDURE: HISTORICAL BACK SURGERY CHOLECYSTECTOMY PROCEDURE: NV LAPAROSCOPY SURG CHOLECYSTECTOMY Medical History Medical History Date Comments Benign prostate hyperplasia 10/01/2015 DX:B enign prostate hyperplasia Diabetes mellitus type 2, uncomplicated 08/05/2017 DX:Diabetes mellitus type 2, uncomplicated (HCC) Genital warts 08/22/2013 DX:Genital warts History of pilonidal cyst 11/24/2017 DX:His tory of pilonidal cyst Hyperlipidemia 08/13/2017 DX:Hyperlipidemi a Hypertension 08/05/2017 DX:Hypertension Family History Medical History Relation Name Comments No Known Problems Brother No Known Problems Daughter No Known Problems Father No Known Problems Mother No Known Problems Other No Known Problems Sister No Known Problems Son Autoimmune disease Neg Hx Breast cancer Neg Hx Colon cancer Neg Hx Coronary artery disease Neg Hx Diabetes Neg Hx Heart attack Neg Hx Heart failure Neg Hx Hyperlipidemia Neg Hx Hypertension Neg Hx Mental illness Neg Hx Prostate cancer Neg Hx Sleep apnea Neg Hx Thyroid disease Neg Hx Relation Name Status Comments Brother Daughter Father Mother Other Sister Son Social History Tobacco Use Types Packs/Day Years Used Date Smoking Tobacco: Every Day Cigarettes Smokeless Tobacco: Never Tobacco Cessation:Ready to Q uit: Not Asked; Counseling Given: Not Answered Alcohol Use Standard Drinks/Week Comments No 0 (1 standard drink = 0.6 oz pur e alcohol) Sex and Gender Information Value Date Recorded Sex Assigned at Not on file Legal Sex Male 6:50 PM EST Gender Identity Not on file Sexual Orientation Not on file Obstetrics History Last Filed Vital Signs Vital Sign Reading Time Taken Comments Blood Pressure 134/86 05/10/2024 3:09 PM EDT Pulse 90 05/10/2024 3:09 PM EDT Temperature 36.4 ??C (97.5 ??F) 05/10/2024 3:09 PM ED T Respiratory Rate - - Oxygen Saturation 98% 05/10/2024 3:09 PM EDT Inhaled Oxygen Concentration - - Weight 94.8 kg (209 lb) 05/10/2024 3:09 PM EDT Height 180.3 cm (5' 11 ) 03/30/2023 1:41 PM EST Body Mass Index 29.15 03/30/2023 1:41 PM EST Plan of Treatment Upcoming Encounters Date Type Department Care Team (Late st Contact Info) Description 09/26/2024 2:45 PM EDT Office Visit Internal Medicine - [place] [address] [facility] [address] [place] [address] Swapna Koch MD [address] [facility] [address] [place] [address] Health Maintenance Due Date Last Done Comments Diabetes: Annual Foot Exam 1966 DTaP,Tdap,and Td Vaccines (1 - Tdap) 05/13/1975 Pneumococcal Vaccine: 50+ Years (1 of 2 - PCV) 05/13/1975 Zoster Vaccines (1 of 2) 2006 Abdominal Aortic Aneurysm (AAA) Screen 01/10/2022 Depression Screening 01/10/2022 Falls Risk Assessment 01/10/2022 Hepatitis C Screening 01/10/2022 Lung Cancer Screening (Low Dose CT) 01/10/2022 Medicare Annual Wellness Visit 01/10/2022 Social Influencers of Health Screening 01/10/2022 Diabetes: Annual Urine Albumin-Creatinine Ratio (uACR) 07/29/2023 07/28/2022 COVID-19 Vaccine (2023-2 5 season) 2023 Diabetes: Blood Sugar Contro l Test (HGBA1C) 06/06/2024 12/07/2023, 07/30/2023, 07/30/2023 Diabetes: Annual Retina Eye Exam 09/02/2024 09/03/2023 Influenza Vaccine (Season Ended) 2024 Diabetes: Annual GFR (Glomerular Filtration Rate) 12/06/2024 12/07/2023, 07/30/2023, 07/30/2023 Hypertension/CHF/CAD Annual BMP Blood Test 12/06/2024 12/07/2023, 07/30/2023, 07/30/2023 Colorectal Cancer Screening: FIT-DNA (Cologuard) 08/18/2026 08/19/2023 Cholesterol Screening (Lipid Panel) 07/29/2028 07/30/2023, 07/30/2023 RSV Immunization Adult Patients (1 - 1-dose 75+ series) 05/13/2031 HIB Vaccines Aged Out No longer eligi ble based on patient's age to complete this topic HPV Vaccines Aged Out No longer eligi ble based on patient's age to complete this topic Hepatitis A Vaccines Aged Out No long er eligible based on patient's age to complete this topic Hepatitis B Vaccines Aged Out No long er eligible based on patient's age to complete this topic IPV Vaccines Aged Out No longer eligi ble based on patient's age to complete this topic MMR Vaccines Aged Out No longer eligi ble based on patient's age to complete this topic Meningococcal ACWY Vaccine Aged Out N o longer eligible based on patient's age to complete this topic Meningococcal B Vacine Aged Out No lo nger eligible based on patient's age to complete this topic RSV Immunization Patients Under 20 months Aged Out No longer eligible b ased on patient's age to complete this topic Varicella Vaccines Aged Out No longer eligible based on patient's age to complete this topic Procedures Procedure Name Priority Date/Time Associated Diagnosis Comments CT ABDOMEN PELVIS WO AND W CONTRAST Routine 04/14/2024 10:48 AM EST Gross hematuria DIABETES EYE EXAM Routine 09/03/2023 ANNUAL BMP BLOOD TEST Routine 07/30/2023 HEMOGLOBIN A1C Routine 07/30/2023 LIPID PANEL Routine 07/30/2023 URINE ALBUMIN CREATININE RATIO Routine 07/28/2022 from Last 3 Months or Most Recently Relevant to Health Maintenance Results * CT Abdomen Pelvis wo and w Contrast (04/14/2024 10:48 AM EST) Anatomical Region Laterality Modality Body Computed Tomogra phy 04/17/2024 11:5 6 AM EDT Impressions 04/17/2024 12:02 PM EDT No suspicious renal mass or nephroureteral calculus. ??Prostatomegaly. -------- FINAL REPORT -------- Dictated By: Antonella Cintron Dictated Date: 04/17/2024 11:56 ET Assigned Physician: Antonella Cintron Reviewed and Electronically Signed By: Antonella Cintron Signed Date: 04/17/2024 12:02 ET Workstation ID: [id number] Transcribed By: Self Edit Transcribed Date: 04/17/2024 11:56 ET Narrative 04/17/2024 12:02 PM EDT PROCEDURE: CT abdomen and pelvis with and without contrast INDICATION: Hematuria TECHNIQUE: CT of the abdomen and pelvis before and after the intravenous administration of 100cc Omnipaque 300. Multiplanar reformats. The examination was performed utilizing dose reduction techniques. COMPARISON: ??No priors available. FINDINGS: ?? LOWER THORAX: Lung bases are clear. HEPATOBILIARY: No focal liver lesions. No cholelithiasis or biliary duct dilatation. ??Status post cholecystectomy. SPLEEN: No splenomegaly. PANCREAS: No focal mass or ductal dilatation. ADRENALS: No nodules. KIDNEYS/URETERS: No hydronephrosis, stones, or solid mass. PELVIC ORGANS/BLADDER: Prostatomegaly. ??There is prominent median lobe bladder protrusion. ??Circumferential wall thickening the bladder presumably related to chronic outlet obstruction. PERITONEUM / RETROPERITONEUM: No ascites or free air. No retroperitoneal lymphadenopathy. VESSELS: Scattered atherosclerotic calcifications throughout the aorta and its major branches. No aneurysm. GI TRACT: No bowel distention or wall thickening. Normal appendix. BONES AND SOFT TISSUES: Degenerative changes throughout the bones. ??Postsurgical changes of L5 laminectomy. ??Disc bulge L3-4 with probable spinal stenosis at this level. ??There is also prominent anterior epidural fat at L3 with severe spinal stenosis in this region as well there is also spurring resulting in severe neural foraminal narrowing on the right at this level. ??Epidural stimulator leads. ??Small fat-containing umbilical hernia. ??Fat-containing left inguinal hernia. Procedure Note Antonella Cintron MD - 04/17/2024 PROCEDURE: CT abdomen and pelvis with and without contrast INDICATION: Hematuria TECHNIQUE: CT of the abdomen and pelvis before and after the intravenousadministration of 100cc Omnipaque 300. Multiplanar reformats. Theexamination was performed utilizing dose reduction techniques. COMPARISON: No priors available. FINDINGS: LOWER THORAX: Lung bases are clear. HEPATOBILIARY: No focal liver lesions. No cholelithiasis or biliary ductdilatation. Status post cholecystectomy. SPLEEN: No splenomegaly. PANCREAS: No focal mass or ductal dilatation. ADRENALS: No nodules. KIDNEYS/URETERS: No hydronephrosis, stones, or solid mass. PELVIC ORGANS/BLADDER: Prostatomegaly. There is prominent median lobebladder protrusion. Circumferential wall thickening the bladderpresumably related to chronic outlet obstruction. PERITONEUM / RETROPERITONEUM: No ascites or free air. No retroperitoneallymphadenopathy. VESSELS: Scattered atherosclerotic calcifications throughout the aorta andits major branches. No aneurysm. GI TRACT: No bowel distention or wall thickening. Normal appendix. BONES AND SOFT TISSUES: Degenerative changes throughout the bones.Postsurgical changes of L5 laminectomy. Disc bulge L3-4 with probablespinal stenosis at this level. There is also prominent anterior epiduralfat at L3 with severe spinal stenosis in this region as well there is alsospurring resulting in severe neural foraminal narrowing on the right atthis level. Epidural stimulator leads. Small fat- containing umbilicalhernia. Fat-containing left inguinal hernia. IMPRESSION: No suspicious renal mass or nephroureteral calculus. Prostatomegaly. -------- FINAL REPORT -------- Dictated By: Antonella Cintron Dictated Date: 04/17/2024 11:56 ET Assigned Physician: Antonella Cintron Reviewed and Electronically Signed By: Antonella Cintron Signed Date: 04/17/2024 12:02 ET Workstation ID: [id number] Transcribed By: Self Edit Transcribed Date: 04/17/2024 11:56 ET Result [facility] Ok Nunn MD IMG CT PROCEDURES Final Result * Diabetes Eye Exam (09/03/2023) [facility] Diabetes: Annual Retina Eye Exam Abstracted Result [facility] Provider HEALTH MAINTENANCE Final Result * Annual BMP Blood Test (07/30/2023) [facility] Annual BMP Blood Test Abstracted Result [facility] Provider HEALTH MAINTENANCE Final Result * (ABNORMAL) Hemoglobin A1c (07/30/2023) [facility] Hemoglobin A1C 6.6(A) <=6.5 % Blood Venous blood specimen / Unknown Result [facility] LAB BLOOD ORDERABLES [place] l Result * (ABNORMAL) Lipid panel (07/30/2023) [facility] LDL/HDL Ratio 7(A) 0 - 4 Triglycerides 231(A) 0 - 150 mg/dL Cholesterol 247(A) 0 - 200 mg/dL HDL 34(A) >=40 mg/dL LDL Cholesterol 167(A) 0 - 100 mg/dL Blood Venous blood specimen / Unknown us Historical Provider LAB BLOOD ORDERABLES Katy l Result * Urine Albumin Creatinine Ratio (07/28/2022) Urine Albumin Creatinine Ratio Abstracted us Historical Provider HEALTH MAINTENANCE Final Result from Last 3 Months or Most Recently Relevant to Health Maintenance Insurance [employer] Care Teams Dependency Case Manager Relationship Specialty Start Date End Date Swapna Koch MD PCP - General Internal Medicine 11/27/17
--- OUTSIDE RECORDS SUMMARY | 2024-05-11 16:00 | XMS_ITS | Encounter Summary ---
Author Organization [employer] Address [address] [place] [address] Care Team Providers Care Hot Top Liner Name Role Phone Swapna Koch MD Primary Care Provider [phone] Reason for Visit * Reason Comments Follow-up Encounter Details Date Type Department Care Team ([facility] st Contact Info) Description 05/10/2024 2:30 PM EDT Office Visit Internal Medicine - [place] [address] [facility] [address] [place] [phone] Swapna Koch MD [address] [facility] [address] [place] [phone] Type 2 diabetes mellitus without complication, without long-term current use of insulin (Primary Dx); Primary hypertension; Mixed hyperlipidemia; Lumbar back pain; Benign prostatic hyperplasia, unspecified whether lower urinary tract symptoms present Social History Tobacco Use Types Packs/Day Years [...] on file Sexual Orientation Not on file documented as of this encounter Last Filed Vital Signs Vital Sign Reading Time Taken Comments Blood Pressure 134/86 05/10/2024 3:09 PM EDT Pulse 90 05/10/2024 3:09 PM EDT Temperature 36.4 ??C (97.5 ??F) 05/10/2024 3:09 PM ED T Respiratory Rate - - Oxygen Saturation 98% 05/10/2024 3:09 PM EDT Inhaled Oxygen Concentration - - Weight 94.8 kg (209 lb) 05/10/2024 3:09 PM EDT Height - - Body Mass Index 29.15 03/30/2023 1:41 PM EST documented in this encounter Progress Notes * Swapna Koch MD - 05/10/2024 2:30 PM EDT CHIEF COMPLAINT: Follow-up IDENTIFIER: Luis Enrique Lemus is a 68 y.o. old male. HPI:Diabetes, hyperlipidemia, GERD, BPH, low back pain, migraine headaches Patient is following urology for microscopic hematuria, CT abdomen and pelvis within normal limits No new complaints today ROS: GENERAL: No malaise, significant weight loss or fever NECK: No lumps, goiter, pain or significant neck swelling RESPIRATORY: No cough, wheezing or shortness of breath CARDIOVASCULAR: No chest pain, leg swelling or palpitations GI: No abdominal discomfort, blood in stools or black stools PSYCH: No sleep disturbance, mood disorder or recent psychosocial stressors. PAST MEDICAL HISTORY: Patient Active Problem List Diagnosis Date Noted Cervical spondylosis with radiculopathy 12/08/2022 Decreased hearing 08/06/2020 Lumbar back pain 08/06/2020 Hyperlipidemia 08/13/2017 Diabetes mellitus type 2, uncomplicated 08/05/2017 Hypertension 08/05/2017 Benign prostate hyperplasia 10/01/2015 Genital warts 08/22/2013 Past Surgical History: Procedure Laterality Date BACK SURGERY PROCEDURE: HISTORICAL BACK SURGERY CHOLECYSTECTOMY PROCEDURE: [place] LAPAROSCOPY SURG CHOLECYSTECTOMY SOCIAL HISTORY: Social History Tobacco Use Smoking status: Every Day Current packs/day: 7.00 Types: Cigarettes Smokeless tobacco: Never Substance Use Topics Alcohol use: No FAMILY HISTORY: Family History Problem Relation Name Age of Onset No Known Problems Father No Known Problems Mother No Known Problems Daughter No Known Problems Son No Known Problems Brother No Known Problems Sister No Known Problems Other Hyperlipidemia Neg Hx Diabetes Neg Hx Autoimmune disease Neg Hx Breast cancer Neg Hx Colon cancer Neg Hx Prostate cancer Neg Hx Coronary artery disease Neg Hx Mental illness Neg Hx Heart attack Neg Hx Heart failure Neg Hx Sleep apnea Neg Hx Hypertension Neg Hx Thyroid disease Neg Hx Family Status Relation Name Status Father (Not Specified) Mother (Not Specified) Daughter (Not Specified) Son (Not Specified) Brother (Not Specified) Sister (Not Specified) Other (Not Specified) Neg Hx (Not Specified) No partnership data on file MEDICATIONS DISCONTINUED/REORDERED: There are no discontinued medications. ACTIVE MEDICATIONS: Outpatient Medications Marked as Taking for the 05/10/24 encounter (Office Visit) with Swapna Koch MD Medication Sig Dispense Refill amoxicillin-clavulanate (AUGMENTIN) 875-125 mg per tablet Take 1 Tablet by mouth 2 times daily. Autolet lancing device check twice daily blood-glucose meter mis USE DIRECTED. clotrimazole-betamethasone (LOTRISONE) 1-0.05 % cream APPLY LOCALLY TWICE A DAY diclofenac (VOLTAREN) 1 % topical gel Apply 1 Dose topically 2 times daily. fenofibrate (TRICOR) 145 mg tablet TOME SUSAN TABLETA POR VIA ORAL [place] glipiZIDE (GLUCOTROL) 5 mg tablet Take 1 tablet (5 mg total) by mouth 2 (two) times a day before meals. TAKE ONE TABLET BY MOUTH IN THE MORNING AND TWO TABLETS AT NIGHT 270 tablet 2 glucose blood test strip Test 2-3 times a day hydrocortisone 2.5 % cream Apply locally twice a day metFORMIN (GLUCOPHAGE) 500 mg tablet Take 1 tablet (500 mg total) by mouth 1 (one) time each day with breakfast. TAKE 2 TABLETS BY MOUTH DAILY WITH BREAKFAST AND 1 TABLET AT BEDTIME 270 tablet 1 omeprazole (PriLOSEC) [address] capsule Take 1 capsule (20 mg total) by mouth 1 (one) time each day.TAKE 1 CAPSULE BY MOUTH EVERY DAY 90 capsule 2 pregabalin (LYRICA) 75 mg capsule Take 1 capsule (75 mg total) by mouth 2 (two) times a day. Max Daily Amount: 150 mg SUMAtriptan (IMITREX) 50 mg tablet Take 1 Tablet by mouth daily as needed for Migraine. May repeat dose once after 2 hours, if needed. tamsulosin (FLOMAX) 0.4 mg 24 hr capsule Take 1 Capsule by mouth daily. Take 30 mins after same meal every day.TOME 1 CAPSULA POR VIA ORAL [place] ALLERGIES: Allergies Allergen Reactions Simvastatin Hives and Itching PHYSICAL EXAM: Visit Vitals BP 134/86 (BP Location: Left arm, Patient Position: Sitting, BP Cuff Size: Large adult) Pulse 90 Temp 36.4 ??C (97.5 ??F) (Temporal) Wt 94.8 kg (209 lb) SpO2 98% BMI 29.15 kg/m?? Smoking Status Every Day BSA 2.15 m?? APPEARANCE: Alert and in no acute distress NECK: Neck supple, no adenopathy, thyroid symmetric and of normal size HEART: RRR with normal S1 and S2, no murmurs, no gallops, no JVD appreciated LUNG: clear to auscultation ABDOMEN: Bowel sounds normoactive, no bruits, soft, non-tender, without organomegaly or palpable masses SKIN: Skin color, texture, turgor normal. No rashes or lesions. LABS/IMAGING: Abstract on 11/19/2023 Component Date Value Ref Range Status Annual BMP Blood Test 07/30/2023 Abstracted Final Diabetes: Annual Retina Eye Exam 09/03/2023 Abstracted Final HM Urine Albumin Creatinine Ratio 07/28/2022 Abstracted Final LDL/HDL Ratio 07/30/2023 7 (A) 0 - 4 Final Triglycerides 07/30/2023 231 (A) 0 - 150 mg/dL Final Cholesterol 07/30/2023 247 (A) 0 - 200 mg/dL Final HDL 07/30/2023 34 (A) >=40 mg/dL Final LDL Cholesterol 07/30/2023 167 (A) 0 - 100 mg/dL Final Hemoglobin A1C 07/30/2023 6.6 (A) <=6.5 % Final Medication and lab orders: Orders Placed This Encounter Procedures Hemoglobin A1c Other orders: None IMPRESSION: 1. Type 2 diabetes mellitus without complication, without long-term current use of insulin 2. Primary hypertension 3. Mixed hyperlipidemia 4. Lumbar back pain 5. Benign prostatic hyperplasia, unspecified whether lower urinary tract symptoms present PLAN: Microscopic hematuria--urine analysis and urine culture negative, follow-up with urology, recent CTabdomen and pelvis within normal limits Type 2 diabetes-- A1c 6.8., metformin and glipizide to continue, A1c ordered Hyperlipidemia--continue Zetia Migraine headaches--sumatriptan as needed GERD--continue omeprazole BPH--following urology, PSA high, on tamsulosin Low back pain--following pain management in [place], planning to get surgery done soon We will order A1c CMP lipids Will follow-up in 4 months or sooner as needed Swapna Koch MD on 05/10/2024 at 3:50 PM EDT documented in this encounter Plan of Treatment Upcoming Encounters Date Type Department Care Team (Late st Contact Info) Description 09/26/2024 2:45 PM EDT Office Visit Internal Medicine - [place] [address] [facility] [address] [place] [phone] Swapna Koch MD [address] [facility] [address] [place] [phone] Scheduled Orders Name Type Priority Associated Diagnoses Orde r Schedule Hemoglobin A1c Lab Routine Type 2 diabetes mellitus without complication, without long-term current use of insulin ([facility]) 1 Occurrences starting 05/10/2024 until 05/10/2025 documented as of this encounter Visit Diagnoses Diagnosis Type 2 diabetes mellitus without complication, without long-term current use of insulin- Primary Primary hypertension Unspecified essential hypertension Mixed hyperlipidemia Lumbar back pain Lumbago Benign prostatic hyperplasia, unspecified whether lower urinary tract symptoms present documented in this encounter Historical Medications * This list may reflect changes made after this encounter. pregabalin (LYRICA) 75 mg capsule Take 1 capsule (75 mg total) by mouth 2 (two) times a day. Max Daily Amount: 150 mg added in this encounter Care Teams Hot Top Liner Relationship Specialty Start Date End Date Swapna Koch MD PCP - General Internal Medicine 11/27/17 documented as of this encounter
== END 2024-05-11 15:20 | disposition home or self-care (01) ==
LOC: HO.PMC 14:29
PROVIDERS: PCP Internal Medicine; Visit Provider Anesthesiology
DX: M50.30 Other cervical disc degeneration, unspecified cervical region (principal); M47.812 Spondylosis without myelopathy or radiculopathy, cervical region; G62.9 Polyneuropathy, unspecified; M96.1 Postlaminectomy syndrome, not elsewhere classified; M54.16 Radiculopathy, lumbar region; T85.192A Other mechanical complication of implanted electronic neurostimulator of spinal cord electrode (lead), initial encounter
CPT/HCPCS: 99215

== ENCOUNTER → 2024-05-11 14:29 | Outpatient (BNVA) | payer OTHER, SELFPAY | PROVIDERS: PCP Internal Medicine; Visit Provider Anesthesiology | DX: M50.30 Other cervical disc degeneration, unspecified cervical region (principal); M47.812 Spondylosis without myelopathy or radiculopathy, cervical region; M96.1 Postlaminectomy syndrome, not elsewhere classified; M54.16 Radiculopathy, lumbar region; G62.9 Polyneuropathy, unspecified; T85.192A Other mechanical complication of implanted electronic neurostimulator of spinal cord electrode (lead), initial encounter | CPT/HCPCS: 99212 ==

== ENCOUNTER 2024-07-26 14:29 | Outpatient (AMB) | payer OTHER, SELFPAY ==
--- NOTE | 2024-07-26 14:35 | MHC.OFFVIS ---
Vital Signs 07/26/24 14:36 Height 5 ft 11 in Weight 201 lb BMI 28.0 BP 152/82 H Blood Pressure Location Lt brachial Position Sitting Respiration 20 Pulse 104 H Pulse Source Pulse Oximeter Oxygen Delivery Method Room Air Intake Visit Reasons: 2 month FU Engine Monitor Required: Yes Engine Monitor Name: [id number] flor Allergies simvastatin (From Zocor) Allergy (Intermediate, Verified 07/26/24 14:41) itching/mouth swelling ondansetron (From Zofran) Adverse Reaction (Intermediate, Verified 07/26/24 14:41) extreme redness at injection site HPI Comments Details: Luis Enrique is in the office today for the follow-up and pain medication refill. We started this conversation with help of [employer] device however the computer got frozen and we had to use the help for interpreting from office staff. He reports then he is doing well on Lyrica, cyclobenzaprine, lidocaine patches. Request to continue lidocaine patches and cyclobenzaprine. Currently Lyrica has some refills in his pharmacy. His pharmacy is [facility]. He insists on prescribing him 3 patches a day of 5% lidocaine. This is prescribed p.r.n. and it is suggested for him to apply the patch is only when his pain is severe. He expressed understanding. Cyclobenzaprine is also prescribed patient reports without cyclobenzaprine suffering severe cramping sensation in bilateral lower extremities. Prior: He continues to reports the increase of the discomfort in the projection of the scar of the lumbar spine. He believes that when I was removing the staple taking care of him in postoperative time I pulled out 1 of his epidural leads. At the same time he reports that stimulation is appropriate and covers the most of his lower extremities pain. He also believes that there is inflammation in the area of scarring tissues. I explained to him that of course body reaction to foreign objects always produces inflammation to certain extent, the photographs he demonstrated to me of his back performed appropriately exactly do not demonstrate any inflammation in the area of the insertion of the electrodes because they do not show any redness any major swelling, it would be documented to have increased temperature if he would have infection and inflammation. I discussed this situation with his neurosurgeon Dr. Linda Moulton. My idea was to find a plastic surgeon to excise the paper thin skin covering the current anchors of the spinal cord stimulator. Dr. Velez recommended to remove current thoracic placed spinal cord stimulator and reinsert the spinal cord stimulator in the projection of the higher level of the lower thoracic upper lumbar spine avoid the scarring tissue and then t to tunnel the leads back to the battery of the patient through the more thick paraspinal tissues. I agreed with Dr. Moulton's opinion and I offered to the patient to have this procedure scheduled with Dr. Lombardo, using surgical approach in the T9 or T10 projection thoracic incision or go for this procedure with me where I will insert 2 new leads into his epidural space in the projection of approximate T11-T10 projection. He agreed to go for procedure with me. I might request an assistance of a general surgeon to help me to close the wound after removal of the old spinal cord stimulator leads and surrounding scar tissue. We also discussed possibility of treating his pain with systemic opioid medications. For this he needs to become member of our chronic opioid program. In the past requested me to send him for MRI of the cervical spine. Mostly complains on pain in the projection of the battery site as well as cervicalgia neck pain. He was sent for MRI and the results of the MRI are as below. He has significant spondylosis of this cervical spine as well as several levels of the foraminal stenosis. He reports numbness and awkwardness of bilateral upper extremities. However when I offered him to consider neurosurgical consult he adamantly refused. Then I offered him to have an attempt of therapeutic C4-C5 C6 medial branch block bilateral on the cervical spine. He never went for this procedure. He requests me to prescribe lidocaine ointment to treat his neck pain. Prior : Next He has excellent results of the spinal cord stimulator he reports up to 80% of the improvement with better mobility better activities of daily living and excellent social interactions.? He reports better night's sleep. on the background of better pain relief from [employer] spinal cord stimulator in the lumbar spine he reports increased discomfort in the cervical spine. He reports that cervical spine prevents him from having good night's sleep. He denies pain radiation into bilateral upper extremities but reports relative weakness of bilateral hands. He reports that in the past about 20 years ago he was examined with MRI of the cervical spine and he was offered surgery on his cervical spine. At that time he declined to go for the surgery. He would like to explore those options today again. He requests me to send him for MRI of the cervical spine. PFSH Medical History Spinal cord stimulator dysfunction Arthritis GERD (gastroesophageal reflux disease) Diabetes Elevated cholesterol Genital warts Benign prostate hyperplasia Hyperlipidemia History of pilonidal cyst Decreased hearing Lumbar back pain Surgical History Hx laparoscopic cholecystectomy History of back surgery Social History Patient Tobacco Use Status: Current everyday Tobacco user Tobacco use type: Cigarette Cigarettes Per Day: 15 Years Smoked: 30+ Review of Systems Const All systems reviewed & are unremarkable except as noted in HPI and below Physical Exam Vital Signs: Last Vital Signs Pulse 104 H 07/26/24 14:36 Resp 20 07/26/24 14:36 BP 152/82 H 07/26/24 14:36 Oxygen Delivery Method Room Air 07/26/24 14:36 BMI result Body Mass Index 28.0 General: awake, alert, oriented. Answers questions appropriately. Fully engaged in examination. Skin: warm, dry, intact HEENT: Normocephalic. Hearing intact. Cardiac: External chest normal in appearance. Respiratory: No cough, audible wheezing or stridor. Abdomen: without gross distension. MS: No obvious swelling or deformities. Neurological: Oriented to person, place, time and situation. Thought process intact. Ambulates with the use of a cane Psychiatric: Appropriate mood and affect. Good judgment and insight. Assessment & Plan Assessment & Plan (1) Degeneration, intervertebral disc, cervical: Code(s): M50.30 - Other cervical disc degeneration, unspecified cervical region Category: Medical (2) Spondylosis of cervical joint without myelopathy: Code(s): M47.812 - Spondylosis without myelopathy or radiculopathy, cervical region Category: Medical (3) Peripheral neuropathy: Code(s): G62.9 - Polyneuropathy, unspecified Category: Medical (4) Post-laminectomy syndrome: Code(s): M96.1 - Postlaminectomy syndrome, not elsewhere classified Category: Medical (5) Bilateral lumbar radiculopathy: Code(s): M54.16 - Radiculopathy, lumbar region Category: Medical (6) Spinal cord stimulator dysfunction: Code(s): T85.192A - Other mechanical complication of implanted electronic neurostimulator of spinal cord electrode (lead), initial encounter Category: Medical (7) Malfunction of spinal cord stimulator: Code(s): T85.192A - Other mechanical complication of implanted electronic neurostimulator of spinal cord electrode (lead), initial encounter Category: Medical Plan Finally [facility] insurance approved the revision procedure. However the patient is reluctant to go for the procedure of the revision of the spinal cord stimulator. The revision is necessary to remove the paper thin scarred skin over the area of the anchors of the spinal cord stimulator leads causing discomfort for the patient. Instead of the revision we continue with lidocaine patches, for spasticity in bilateral lower extremities I prescribed him cyclobenzaprine which helps the patient. She also receives Lyrica which helps his postlaminectomy syndrome pain. His pharmacy is [facility] and his prescription needs to be approved by his prosecuting attorney. Next appointment as needed. Medications: Changed From lidocaine 5% leave on most painful area for up to 12 hrs 3 patches topical DAILY PRN 30 ea 8RF pain, severe G62.9 - Polyneuropathy, unspecified To lidocaine 5% leave on most painful area for up to 12 hrs 3 patches topical DAILY PRN 90 ea 12RF pain, severe 30 days G62.9 - Polyneuropathy, unspecified Refilled cyclobenzaprine 5 mg PO TID PRN 90 tabs 12RF muscle spasm 30 days Patient Instructions: I here by testify that I spent 36 minutes in conversation with this patient as well as planning his care and organizing this note. Coding Level of Care Code Est Pt Level 4 (59634) Diagnoses Degeneration, intervertebral disc, cervical M50.30 Spondylosis of cervical joint without myelopathy M47.812 Peripheral neuropathy G62.9 Post-laminectomy syndrome M96.1 Bilateral lumbar radiculopathy M54.16 Spinal cord stimulator dysfunction T85.192A
[2024-07-26 14:36] VITALS: BP 152/82; PULSE 104; RESP 20; BMI 28.0
--- OUTSIDE RECORDS SUMMARY | 2024-07-26 16:40 | XMS_ITS | Clinical Summary ---
Author Organization [facility] Address [address] [place] [phone] Phone Care Team Providers Care Laundry Tech Name Role Phone Swapna Koch MD Primary Care Provider [phone] Allergies Active Allergy Reactions Criticality Noted Date [...] AT NIGHT 270 tablet 2 4 Active pregabalin (LYRICA) 75 mg capsule Take 1 capsule (75 mg total) by mouth 2 (two) times a day. Max Daily Amount: 150 mg Active metFORMIN (GLUCOPHAGE) 500 mg tablet Take 1 tablet (500 mg total) by mouth 1 (one) time each day with breakfast. TAKE 2 TABLETS BY MOUTH DAILY WITH BREAKFAST AND 1 TABLET AT BEDTIME 270 tablet 1 5 Active metFORMIN (GLUCOPHAGE) 500 mg tablet Take 1 tablet (500 mg total) by mouth 1 (one) time each day with breakfast. TAKE 2 TABLETS BY MOUTH DAILY WITH BREAKFAST AND 1 TABLET AT BEDTIME 270 tablet 1 5 07/14/19 25 Discontinu ed(Reorder ) Active Problems Problem Noted Date Diagnosed Date Cervical spondylosis with radiculopathy 12/09/19 23 Overview (11/19/2023): Last Assessment & Plan: Unfortunately, Mr. Lemus was unable to start physical therapy as there was no location within easy reach in his hometown of [place] and he cannot tolerate sitting to go [...] and exam were done in conjunction with [facility] language services motor polarizer Ivory #[id number]. Mr. Lemus did improve after his L3-4 [...] this. Hyperlipidemia 08/13/2017 Diabetes mellitus type 2, un complicated (CMS/[facility]ER[facility] V24, CMS/FORMER[facility] V28) 08/05/2017 Hypertension 08/05/2017 Benign prostate hyperplasia 10/01/2015 Genital warts 08/22/2013 Encounters Date Type Department Care Team Description 05/10/2024 2:30 PM EDT Office Visit Internal Medicine - [address] [place] [address] Swapna Koch MD Type 2 diabetes mellitus without complication, without long-term current use of insulin (CMS/HCC V24, CMS/HCC V28) (Primary Dx); Primary hypertension; Mixed hyperlipidemia; Lumbar back pain; Benign prostatic hyperplasia, unspecified whether lower urinary tract symptoms present from Last 3 Months Surgical History Surgery Date Site/Laterality Comments BACK SURGERY PROCEDURE: HISTORICAL BACK SURGERY CHOLECYSTECTOMY PROCEDURE: [place] LAPAROSCOPY SURG CHOLECYSTECTOMY Medical History Medical History Date Comments Benign prostate hyperplasia 10/01/2015 DX:B enign prostate hyperplasia Diabetes mellitus type 2, uncomplicated (CMS/HCC V24, CMS/HCC V28) 08/05/2017 DX:Diabetes mellitus type 2, uncomplicated ([facility]) Genital warts 08/22/2013 DX:Genital warts History of [...] 90 05/10/2024 3:09 PM EDT Temperature 36.4 C (97.5 F) 05/10/2024 3:09 PM EDT Respiratory Rate - - Oxygen Saturation 98% [...] PM EDT Office Visit Internal Medicine - [place] [address] [facility] [address] [place] [phone] Swapna Koch MD [address] [phone] Health Maintenance Due Date Last Done [...] Albumin-Creatinine Ratio (uACR) 07/29/2023 07/28/2022 COVID-19 Vaccine ( - 2023-2 5 season) 2023 Diabetes: Blood Sugar Contro [...] age to complete this topic Meningococcal B Vaccine Aged Out No l onger eligible based on patient's age to complete this topic RSV Immunization Patients Under 20 months Aged Out No longer eligible b ased on patient's age to complete this topic Varicella Vaccines Aged Out No longer eligible based on patient's age to complete this topic Procedures Procedure Name Priority Date/Time Associated Diagnosis Comments DIABETES EYE EXAM Routine 09/03/2023 ANNUAL BMP BLOOD TEST Routine 07/30/2023 HEMOGLOBIN A1C Routine 07/30/2023 LIPID PANEL Routine 07/30/2023 URINE ALBUMIN CREATININE RATIO Routine 07/28/2022 from Last 3 Months or Most Recently Relevant to Health Maintenance Results * Diabetes Eye Exam (09/03/2023) Pathologist [facility] Diabetes: Annual Retina Eye Exam Abstracted Result [facility] Provider HEALTH MAINTENANCE Final Result * Annual BMP Blood Test (07/30/2023) [facility] Annual BMP Blood Test Abstracted [facility] Provider HEALTH MAINTENANCE Final Result * (ABNORMAL) Hemoglobin A1c (07/30/2023) [facility] Hemoglobin A1C 6.6(A) <=6.5 % Blood Venous blood specimen / Unknown Result [facility] Provider LAB BLOOD ORDERABLES Kat[place] l Result * (ABNORMAL) Lipid panel (07/30/2023) [facility] LDL/HDL Ratio 7(A) 0 - 4 Triglycerides 231(A) 0 - 150 mg/dL Cholesterol 247(A) 0 - 200 mg/dL HDL 34(A) >=40 mg/dL LDL Cholesterol 167(A) 0 - 100 mg/dL Blood Venous blood specimen / Unknown Historical Provider LAB BLOOD ORDERABLES Katy l Result * Urine Albumin Creatinine Ratio (07/28/2022) Urine Albumin Creatinine Ratio Abstracted Historical Provider HEALTH MAINTENANCE Final Result from Last 3 Months or Most Recently Relevant to Health Maintenance Insurance [employer] Care Teams Laundry Tech Relationship Specialty Start Date End Date Swapna Koch MD PCP - General Internal Medicine 11/27/17
== END 2024-07-26 15:17 | disposition home or self-care (01) ==
LOC: HO.PMC 14:30
PROVIDERS: PCP Internal Medicine; Visit Provider Anesthesiology
DX: M50.30 Other cervical disc degeneration, unspecified cervical region (principal); M47.812 Spondylosis without myelopathy or radiculopathy, cervical region; G62.9 Polyneuropathy, unspecified; M96.1 Postlaminectomy syndrome, not elsewhere classified; M54.16 Radiculopathy, lumbar region; T85.192A Other mechanical complication of implanted electronic neurostimulator of spinal cord electrode (lead), initial encounter
CPT/HCPCS: 99214

== ENCOUNTER → 2024-07-26 14:29 | Outpatient (BNVA) | payer OTHER, SELFPAY | PROVIDERS: PCP Internal Medicine; Visit Provider Anesthesiology | DX: M47.812 Spondylosis without myelopathy or radiculopathy, cervical region (principal); M50.30 Other cervical disc degeneration, unspecified cervical region; G62.9 Polyneuropathy, unspecified; M96.1 Postlaminectomy syndrome, not elsewhere classified; M54.16 Radiculopathy, lumbar region; T85.192A Other mechanical complication of implanted electronic neurostimulator of spinal cord electrode (lead), initial encounter | CPT/HCPCS: 99212 ==